=== PATIENT | female | born 1970 | race Caucasian/White ===

== ENCOUNTER 2025-06-10 08:05 | Outpatient (OUT) | payer BC, SELFPAY ==
--- OUTSIDE RECORDS SUMMARY | 2025-05-27 19:22 | XMS_ITS | Continuity of Care Document ---
Author Organization [facility] Address [address] [place] [address] Phone Care Team Providers Care Window Shade Estimator Name Role Phone Carmen Stephane BAH Primary Care Provider [phone] Marquez Haney PA-C Attending Provider Care Teams Patient Care Team Team Status: Active Member Role/Relationship Status Dates Stephane Morales DO Primary Care Provider Active Visit Care Team Team Status: Inactive Member Role/Relationship Status Dates Stephane Morales DO Primary Care Provider Active Start: May 27, 2025 End: May 27, 2025TAD Jesus-CAttenmerced ProviderActiveStart: May 27, 2025 End: May 27, 2025 Allergies, Adverse Reactions, Alerts Allergen Type Severity Reaction Last Updated Verified Status venom-honey bee Allergy Unknown Anaphylaxis October 23, 2023 6:3 1am Yes Active Social History Smoking Status Status Start Date End Date Date of Observa tion Never smoked tobacco (finding) October 23, 2023 7:20am Observation Status Observation Response Date of Response Legal Sex Female (finding) [facility] Family History Relationship Condition Age at Onset Recorded Date/T maikel mother Cerebrovascular accident (CVA) Unknown fatherDiabetes mellitusUnknownmotherDiabetes mellitusUnknownpaternal grandfather Heart diseaseUnknown Problems Active Problems Problem Diagnosis/Recorded Date Onset Date Stat COVID-19 May 06, 2021 6:04pm Unknown Ac tive Fever May 06, 2021 6:04pm Unknown Ac tive Medications Medication Status Dose Units Route Directions Qty Days Refills S tart Date Stop Date End Date Reason(s) Instructions Adherence Zinc Tablet,Chewable Discontinued TABPOOct2020 11:00pmApril 2023 6:47amVitamin X86-Kdvyq Acid 0.5-1 mg TabletDiscontinuedTABPOOctober 2020 11:00pmApril 2023 6:48amAscorbic Acid (Vitamin C) (Vitamin C) 500 mg DiarinXrxlrd570MZHMPatdf May 09, 2021 11:00pmUnknownAcetaminophen (Tylenol) 325 mg Capsule Oyrnbrwcelmx258RAMUDHCDX 4-6 HOURS as needed for FEVEROct2020 11:00pm October 23, 2023 6:46amIbuprofen 200 mg PlvjdoKmelzf289QJCRA3O as needed for PainOct2020 11:00pmUnknownDexamethasone (Decadron) 6 mg tablet Dftvlxuinyge6IOYUHbbdg29Ecaffjnz 2020 11:00pmApril 2023 6:47am Famotidine (Pepcid) 20 mg jkzxqfCmfofswrbuzu44EZQQIrnrl695Xyewpgwz 4th, 2021 11:00pmApril 2023 6:47amTo prevent gastritis or stomach ulcers from steroidRivaroxaban (Xarelto) 10 mg crimerQwlchvilfcxb48YNGEJdpfu322Irpuebyw 4th, 2021 11:00pmApril 2023 6:47amTo prevent clot formations from COVID-19 infection Relevant Diagnostic Tests and/or Laboratory Data Laboratory Results Test Collection Date/Time Result Date/Time Result Interpretation Reference Range Result Comment Performing Site Corrected White Blood Count May 27, 2025 7:00am May 27, 2025 2:23pm 6.9 10*3/uL 3[facility] [id number] [address] [place] [address] 00512Hkzazgzeokx WBC CountMay 27, 2025 7:00amNovember 2024 2:23pm6.9 10*3/uL3.8-11.6[facility] [id number] [address] [facility] [address]Xtm Blood CountNovember 2024 7:00amNovember 2024 2:23pm4.81 10*6/uL3.60-5.00[facility] [id number] [address] [facility] 42970VokrxzdkzjDrheeyjf 2024 7:00amNovember 2024 2:23pm 14.0 g/dL11.8-15.4[facility] [id number] [address] [place] [address] 89615BgltkvzlzaZbekxgxr 2024 7:00amNovember 2024 2:23pm 41.6 %34.0-46.4[facility] [id number] [address] [facility] 95784Mdqb Corpuscular VolumeNovember 2024 7:00amNovember 2024 2:23pm86.6 kV56-091MqyaauoayHolzer Health System Ctr [id number] [address] [place] [address] 43474Ayrr Corpuscular HemoglobinNovember 2024 7:00amNovember 2024 2:23pm29.1 pg24.7-34.3[facility] [id number] [address] [facility] 96954Yrhb Corpuscular Hemoglobin ConcentNovember 2024 7:00am May 27, 2025 2:23pm33.6 g/dL32.0-35.0[facility] [id number] [address] [facility] 48643Vlk Cell Distribution WidthNovember 2024 7:00amNovemb2024 2:23pm13.3 %11.9-15.3[facility] [id number] [address] [facility] 24222Gkusswfa CountNovember 2024 7:00amNovember 2024 2:27ra811 10*3/pP707-317LsswlmphiHolzer Health System [facility] [id number] [address] [facility] 35081Xxmg Platelet VolumeNovember 2024 7:00amNove2024 2:23pm7.6 fL6.3-10.7[facility] [id number] [address] [facility] 74452Mnzpvwzyzky (%) (Auto)May 27, 2025 7:00amNovemb2024 2:23pm54.8 %.[facility] [id number] [address] [facility] 36706Vewcbdodjrq (%) (Auto)May 27, 2025 7:00amNovemb2024 2:23pm37.2 %.[facility] [id number] [address] [facility] 41283Vcxwcftfn (%) (Auto)May 27, 2025 7:00amNovemb2024 2:23pm5.0 %.[facility] [id number] [address] [facility] 48400Gyfpnagniub (%) (Auto)May 27, 2025 7:00amNovemb2024 2:23pm2.1 %.[facility] [id number] [address] [facility] 65090Lalwizdhz (%) (Auto)May 27, 2025 7:00ove2024 2:23pm0.9 %.[facility] [id number] [address] [facility] 65242Dqcsodwvy RBC Relative Count (auto)May 27, 2025 7:00am May 27, 2025 2:23pm0.1 /100{WBC}0-0.5[facility] [id number] [address] [facility] 21370Mgbjdsclhcu # (Auto)May 27, 2025 7:00amNovemb2024 2:23pm3.8 10*3/uL1.8-7.7[facility] [id number] [address] [facility] 52796Mtjiycmulcn # (Auto)May 27, 2025 7:00ovemb2024 2:23pm2.6 10*3/uL1.00-4.8[facility] [id number] [address] [facility] 34383Dcfcxrgcz # (Auto)May 27, 2025 7:00amNovemb2024 2:23pm0.3 10*3/uL0.0-0.8[facility] [id number] [address] [facility] 30042Yyvwjpxetma # (Auto)May 27, 2025 7:00amNovember 2024 2:23pm0.1 10*3/uL0.0-0.45[facility] [id number] [address] [facility] 45506Vcvrcoxiq # (Auto)May 27, 2025 7:00amNovemb2024 2:23pm0.1 10*3/uL0.0-0.2[facility] [id number] [address] [facility] 79483S-Oremj Quantitative (PE/DVT)May 27, 2025 7:00amNove2024 5:05pm< 200 ng/mL0-243The reference range for D-dimer is <243 ng/mL D-dimer units.D-dimer results must be used in conjunction with a clinicalpretest probability (PTP) assessment model for deep veinthrombosis (DVT) and pulmonary embolism (PE). Results <230ng/mL d-dimer units can be used as a negative predictor inpatients with low or moderate probability for DVT/PE.Results above the exclusion threshold of 230 ng/ml D-dimerunits for DVT/PE may indicate the need for furtherdiagnostic testing.D-Dimer can be increased in hospitalized patients due toco-morbid conditions.A hematocrit value greater than 55% may lead to inaccurate results in coagulation testing. Patients having hematocrit values >55% require a special collection tube for coagulation studies. Please contact the laboratory at [phone] for redraw instructions.[facility] [id number] [address] [facility] 46985Jygtuqg LevelNov2024 7:00amNovemb2024 2:34cf535 mg/dLAbove high qrhdfu12-353APQ recommended reference rangeRandom Glucose Reference Range is dependent on time and content of last meal. Glucose of more than 200 mg/dL in a nonstressed, ambulatory subject supports the diagnosisof Diabetes Mellitus.[facility] [id number] [address] [facility] 42034Dhnti Urea NitrogenMay 27, 2025 7:00amNove2024 2:45pm15 mg/dL7-25[facility] [id number] [address] [facility] 72958NslwgzcaiuVpfsmehm 18th, 2025 7:00amNove2024 2:45pm 0.93 mg/dL0.60-1.20[facility] [id number] [address] [facility] 48462Kmfufekbt GFR (CKD-EPI)May 27, 2025 7:00amNove2024 2:45pm> 60.0 mL/MinHolzer Health System Ctr [id number] [address] [facility] 41180Krmsql LevelMay 27, 2025 7:00amNove2024 2:04hg988 mmol/I200-840GalucibdoHolzer Health System Ctr [id number] [address] [place] [address]29[address]Potassium LevelMay 27, 2025 7:00amNove2024 2:45pm4.4 mmol/L3.5-5.1[facility] [id number] [address] [facility] 49682Vrginkig LevelMay 27, 2025 7:00amNove2024 2:21wo768 mmol/G21-435XvqkyerqkHolzer Health System Ctr [id number] [address] 5992970Carbon Dioxide LevelMay 27, 2025 7:00amNove2024 2:45pm30.7 mmol/L21.0-31.0[facility] [id number] [address] [facility] 62968Gbbyw GapMay 27, 2025 7:00amNove2024 2:45pm 9.7 mEq/L6.0-15.0[facility] [id number] [address] [facility] 14030Anivjop LevelNovember 2024 7:00amNovember 2024 2:45pm9.2 mg/dL8.6-10.3[facility] [id number] [address] [facility] 769[address]Ggerv ProteinNovember 2024 7:00amNovember 2024 2:45pm6.7 g/dL6.4-8.9[facility] [id number] [address] [facility] 88624RwqsoceStlwkuyb 2024 7:00amNovember 2024 2:45pm4.2 g/dL3.5-5.7[facility] [id number] [address] [facility] 74472TnfovcceWyslgvjv 2024 7:00amNovember 2024 2:45pm2.5 g/dLHolzer Health System Ctr [id number] [address] [facility] 64753Ggjerda/Globulin RatioNovemb2024 7:00amNovember 2024 2:45pm1.7[facility] [id number] [address] [facility] 71960Drqva BilirubinNovember 2024 7:00amNovemb2024 2:45pm0.4 mg/dL0.3-1.0[facility] [id number] [address] [facility] 38275Unygvetvv Amino Transf (AST/SGOT)May 27, 2025 7:00am May 27, 2025 2:45pm16 U/U16-15WtxojozgfHolzer Health System Ctr [id number] [address] [facility] 78454Ohmplmu Aminotransferase (ALT/SGPT)May 27, 2025 7:00am May 27, 2025 2:45pm14 U/L7-52[facility] [id number] [address] [facility] 67121Xyzxmjyz PhosphataseNovember 2024 7:00amNovember 2024 2:45pm59 U/Z74-359MdgjikiedHolzer Health System Ctr [id number] [address] [facility] 16674Niyt LevelNov2024 7:00amNovemb2024 2:45pm 57 ug/aS36-872BtmwwjoxdHolzer Health System Ctr [id number] [address] [facility] 90484Hdmuh Iron Binding CapacityMay 27, 2025 7:00amNove2024 2:28zd913 ug/sM781-839BgtabtvjrHolzer Health System Ctr [id number] [address] [facility] 26881Fvps SaturationMay 27, 2025 7:00amNove2024 2:45pm15.4 %Below low -53SwjoauehhHolzer Health System Ctr [id number] [address] [facility] 79241LnvxvnxmkmzLzfxzdes 18th, 2025 7:00amNove2024 2:45pm 265 mg/uJ186-976DrvkxrkkkHolzer Health System [facility]tr [id number] [address] [facility] 91239NufjicvdXsdecjmr 18th, 2025 7:00amNove2024 3:06pm 57.5 ng/mL11.0-306.8[facility] [id number] [address] [facility] 19610Gjqlgcwutcf LevelNov2024 7:00amNove2024 2:01td148 mg/qC682-413Chrz less than 200 mg/dl low riskChol 201-239 mg/dl borderline riskChol 240 mg/dl and greater high riskHolzer Health System Ctr [id number] [address] [facility] 22416SPF CholesterolMay 27, 2025 7:00amNove2024 2:45pm61 mg/jW09-74ZJC CHOL ATP-III CLASSIFICATION Cardiovascular RiskHDL > or equal to 60 mg/dL LOWHDL < 40 mg/dL HIGHHolzer Health System Ctr [id number] [address] [facility] 35421Wpchkslnzepzn LevelNov2024 7:00amNovemb2024 2:45pm97 mg/dL0-149TRIG ATP III CLASSIFICATIONTRIG less than 150 mg/dL NormalTRIG 150-199 mg/dL Borderline highTRIG 200-500 mg/dL High TRIG greater than 500 mg/dL Very highStandard traceable to the Center for Disease Conrtrol and Prevention (CDC) test method.[facility] [id number] [address] [facility] 51747YGF Cholesterol, CalculatedNov2024 7:00amNovember 2024 2:59vp797 mg/dLAbove high normal0-100LDL ATP III CLASSIFICATIONLDL less than 100 mg/dL OptimalLDL 100-129 mg/dL Near or above zbyygkqCHD061-682 mg/dL Borderline highLDL 160-189 mg/dL HighLDL greater than 189 mg/dL Very high [facility] [id number] [address] [facility] 43931YZPL CholesterolNov2024 7:00amNovemb2024 2:45pm19 mg/dLHolzer Health System [facility]tr [id number] [address] [facility] 93454Pqnowcdifwh/HDL RatioNove2024 7:00amNovember 2024 2:45pm3.2<5.0[facility] [id number] [address] [facility] 25451Pomduid B12 LevelMay 27, 2025 7:002024 3:74ck658 pg/uB794-143EavgsoqisHolzer Health System Ctr [id number] [address] [facility] 1344055-Kwgtxuk Vitamin D TotalMay 27, 2025 7:00amNovemb2024 3:12pm38.7 ng/zH38-194JEWIYKU D STATUS 25(OH)VITAMIN D RANGE (ng/mL) Deficient <20 Insufficient 20 to <21Lheqphuqgy52 to 100Reference: Stephanie COBB,Michael ISABEL, Micheal RAMIREZ, et al. Evaluation,treatment, and prevention of vitamin D deficiency; an Endocrine Society clinical practice guideline. JCEM. 2010; 96(7):1911-30.[facility] [id number] [address] [facility] 57008Nsmrlbku Creatinine Clearance (ChemNov2024 7:00am May 27, 2025 2:45pmN/AFWayne Hospital [facility] [id number] [address] [facility] 32797Firix Microalbumin mg/dlNov2024 7:00amNovember 2024 2:50pm5.6 mg/dLAbove high normal0.0-1.8[facility] [id number] [address] [facility] 33750Swhux Random CreatinineNov2024 7:00amNovemb2024 2:53yt561.00 mg/dLNo reference range establishedHolzer Health System Ctr [id number] [address] [facility] 26802Rrdai Microalbumin/Creatinine RatioNove2024 7:00am May 27, 2025 2:50pm27.2 mg/g0.0-30.030-300 mg/g indicates an increased risk for diabetic nephropathy. Greater than 300 mg/g is consistent with clinical nephropathy. (Am. J. Kidney Disease 1995, 25:107)[facility] [id number] [address] [facility] [address] Advance Directives Advance Directive Response Recorded Date/ Time Advance Directives No May 06, 2021 3:51pm Insurance Providers Guarantor Griselda Davalos Address [address] [facility] [address]Giqebrs Info.Home Phone: Payer Group Member ID Coverage Type Subscriber Relationship to Subscriber Effective Date Expiration Date MMO MMO Id: [id number] L Bailey Id: [id number] [address] [address] Home Phone: [facility] BC/BS Id: [id number] L Bailey Id: [id number] [address] [address] Home Phone: Encounters Encounter Location(s) Arrival/Admit Date Discharge/Departure Date Discharge/Departure Disposition Provider(s) Departed Clinical -Lab [place] May 27, 2025 7:00am May 27, 2025 7:01am Discharged to home care or self care (routine discharge) Griselda Ch PAAlexsandraC Plan of Treatment Future Tests Future scheduled test information is unavailable Pending Tests Test Name Ordered Date Scheduled Date Hemoglobin A1c May 27, 2025 7:00am Estimated Average GlucoseNov2024 7:00am Future Visits Future appointment information is unavailable Future Procedures Procedure Name Ordered Date Scheduled Date A1C with Estimated Average Glu May 27 7:02am May 27, 2025 7:00am Future Medications Future medication information is unavailable Patient Instructions Patient instructions are unavailable
--- OUTSIDE RECORDS SUMMARY | 2025-05-28 14:00 | XMS_ITS | Encounter Summary ---
Author Organization [facility] Address [address] [place] [address] Care Team Providers Care Supplier Manager Name Role Phone JoseStephane enrique David DO Primary Care Provider [phone] Encounter Details DateTypeDepartmentCare Team (Latest Contact Info)Btmseyoopqo41/19/2025 2:00 PM ESTOffice Visit [facility] [place] [facility] [address] [facility] [address] [place] [address] Jose Luis Avilez MD [address] [facility] [address] [place] [address] Well woman exam with routine gynecological exam (Primary Dx); PMB (postmenopausal bleeding) Social History Tobacco UseTypesPacks/DayYears UsedDateSmoking Tobacco: NeverSmokeless Tobacco: NeverAlcohol UseStandard Drinks/WeekCommentsNever0 (1 standard drink = 0.6 oz pure alcohol)caffeine: 1-2 cups per dayHumiliation, Afraid, Rape, and Kick questionnaireAnswerDate RecordedWithin the last year, have you been afraid of your partner or ex-partner?No05/30/2023Within the last year, have you been humiliated or emotionally abused in other ways by your partner or ex-partner?No 05/30/2023Within the last year, have you been kicked, hit, slapped, or otherwise physically hurt by your partner or ex-partner?No05/30/2023Within the last year, have you been raped or forced to have any kind of sexual activity by your part ner or ex-partner?No05/30/2023Social Connection and Isolation PanelAnswerDate RecordedIn a typical week, how many times do you talk on the phone with family, friends, or neighbors?More than three times a week05/30/2023How often do you get together with friends or relatives?More than three times a week05/30/2023How often do you attend christianity or yazidi services?1 to 4 times per year05/30/2023 Do you belong to any clubs or organizations such as christianity groups, unions, fraternal or athletic groups, or school groups?Yes05/30/2023How often do you attend meetings of the clubs or organizations you belong to?More than 4 times per year05/30/2023re you , , , , never , or living with a partner?Rzavfhv3305/30/2023UDIT-CAnswerDate RecordedFrequency of Alcohol ConsumptionNot on file05/30/2023Q2: How many drinks containing alcohol do you have on a typical day when you are drinking?Patient exgmhrtj67/21/2023Q3: How often do you have six or more drinks on one occasion?Patient declined 05/30/2023Overall Financial Resource Strain (CARDIA)AnswerDate RecordedHow hard is it for you to pay for the very basics like food, housing, medical care, and heating?Patient bjxctsui15/21/2023HQ-2AnswerDate RecordedPatient Health Questionnaire-2 Kbmjh66907/26/2024Finhuntsman mental health institute [place] [facility] - Occupational Stress QuestionnaireAnswerDate RecordedDo you feel stress - tense, restless, nervous, or anxious, or unable to sleep at night because yourmind is troubled all the time - these days?Only a rylxgc6705/30/2023Exercise Vital Sign AnswerDate RecordedOn average, how many days per week do you engage in moderate to strenuous exercise (like a brisk walk)?2 days05/30/2023On average, how many minutes do you engage in exercise at this level?20 min05/30/2023Hunger Vital SignAnswerDate RecordedWithin the past 12 months, you worried that your food would run out before you got the money to buymore.Patient tjlolxmi69/21/2023 Within the past 12 months, the food you bought just didn't last and you didn't have money to get more.Patient /21/2023RAPARE - TransportationAnswer Date RecordedIn the past 12 months, has lack of transportation kept you from medical appointments or from getting medications?Patient ettlynjp38/21/2023In the past 12 months, has lack of transportation kept you from meetings, work, or from getting things needed for daily living?Patient pwgishwn88/21/2023Housing Stability Vital SignAnswerDate RecordedIn the last 12 months, was there a time when you were not able to pay the mortgage or rent on time?Patient refused 05/30/2023Number of Places Lived in the Last YearNot on file05/30/2023In the last 12 months, was there a time when you did not have a steady place to sleep or [facility] (including now)?Patient wawfmnx6505/30/2023CommentsNo Sex and Gender InformationValueDate RecordedSex Assigned at BirthNot on file Legal JkeJowluz63/15/2023 7:20 PM EDTGender IdentityNot on fileSexual OrientationNot on filedocumented as of this encounter Last Filed Vital Signs Vital SignReadingTime TakenCommentsBlood Lqleknjq935/7805/28/2025 2:04 PM EST Pulse--Temperature--Respiratory Rate--Oxygen Saturation--Inhaled Oxygen Concentration--Cfgjid15.4 kg (164 lb)05/28/2025 2:04 PM ESTHeight--Body Mass Index27.29107/26/2024 3:07 PM ESTdocumented in this encounter Progress Notes * Jose Luis Avilez MD - 05/28/2025 2:00 PM EST Images from the original note were not included. Jose Luis Avilez MD Obstetrics and Gynecology Patient: Krysta Villalobos Martina, : 1970 (55 y.o.) DOS 05/28/25 Exam Date: 05/28/2025 HPI: Yearly exam Se has stopped having menses, but did have some spotting this past summer Visit Vitals BP 114/78 Wt 164 lb LMP 02/16/2025 BMI 27.29 kg/m?? OB Status Having periods Smoking Status Never BSA 1.85 m?? OB History Para Term AB Living 5 4 4 0 0 4 SAB IAB Ectopic Multiple Live Births 0 0 0 0 4 # Outcome Date GA Lbr Edgardo/2nd Weight Sex Type Anes PTL Lv 5 4 Term 3 Term 2 Term 1 Term Obstetric Comments Pap: 09/01-Neg HORACE: HPV Neg Mammo: 06/12/24-Neg ([facility]) No control; every month, varies in blood loss, LMP: 02/16/25 Medication and Allergies Medication Documentation Review Audit Reviewed by Lillian Mooney MA (Area Development Manager) on 05/28/25 at 1405 Medication Order Taking? Sig Documenting Provider Last Dose Status albuterol HFA 90 mcg/act inhaler [id number] inhale 2 puffs by mouth and INTO THE LUNGS every 6 hours if needed 25 for 25 Stephane Morales, DO Active Tbbvhaa-Xakjeusgchy-Vqinoslrgo (Breztri Aerosphere) 160-9-4.8 MCG/ACT aerosol [id number] 1 puff every12 (twelve) hours. Historical ProviderMD Active cinnamon 500 MG capsule [id number] as directed Orally Historical ProviderMD Active Cyanocobalamin (Vitamin B12) 1000 MCG tablet controlled-release 65632992 1 (one) time each day at the same time. Historical ProviderMD Active cyclobenzaprine (Flexeril) 10 MG tablet [id number] Take 1 tablet (10 mg) by mouth 3 (three) times a day as needed for muscle spasms (q8hrs) TAD Jesus Active [facility] [employer] PO [id number] Take by mouth. Beet root Historical ProviderMD Active Multiple Vitamins-Minerals (Womens Daily Formula) tablet 26267868 Orally Historical ProviderMD Active Turmeric 500 MG capsule [id number] Take by mouth. Stephane Morales, DO Active Zinc-Vitamin C 23-100 MG lozenge 87329964 1 lozenge 1 (one) time each day at the same time. Historical Provider, Active Allergies Allergen Reactions Bee Venom Unknown Past Medical History: Diagnosis Date Allergies Anemia COVID Hx of varicose veins IFG (impaired fasting glucose) Impaired fasting glucose 03/30/2020 Iron deficiency anemia 01/16/2023 Miscarriage (HHS-HCC) (HHS-HCC) x5 Urinary retention Varicella zoster Vitamin D deficiency 01/16/2023 Past Surgical History: Procedure Laterality Date SECTION, LOW TRANSVERSE COLONOSCOPY 10/23/2023 DILATION AND CURETTAGE OF UTERUS 2003 VAGINAL AFTER SECTION 1997 VAGINAL AFTER SECTION x3 Physical Exam: Objective Physical Exam Constitutional: Appearance: Normal appearance. Genitourinary: Vulva normal. No vaginal discharge or bleeding. Right Adnexa: not palpable. Left Adnexa: not palpable. Cervical nabothian cyst present. No cervical lesion. Uterus is not enlarged or tender. Breasts: Right: Normal. Left: Normal. Pulmonary: Effort: Pulmonary effort is normal. Abdominal: Palpations: Abdomen is soft. Neurological: Mental Status: She is alert. Assessment/Plan ICD-10-CM 1. Well woman exam with routine gynecological exam Z01.419 2. PMB (postmenopausal bleeding) N95.0 Repeat sono to re-eval EMT No orders of the defined types were placed in this encounter. documented in this encounter Plan of Treatment DateTypeDepartmentCare Team (Latest Contact Info)Ffmzbjedbtm95/10/2025 8:30 AM ESTAncillary Procedure [facility] [place] [facility] [address] [place] [phone] 06/18/2025 5:30 PM ESTAncillary Procedure [facility] [place] [facility] [address] [place] [phone] 06/08/2026 10:00 AM ESTOffice Visit [facility] [place] [facility] [address] [place] [address] Jose Luis Avilez MD [address] [place] [address] documented as of this encounter Visit Diagnoses Diagnosis Well woman exam with routine gynecological exam- Primary Routine gynecological examination PMB (postmenopausal bleeding) Postmenopausal bleeding documented in this encounter Care Teams Team MemberRelationshipSpecialtyStart DateEnd Date Stephane Morales DO [address] [place] [address] PCP - GeneralFamily Medicine08/07/23documented as of this encounter
--- OUTSIDE RECORDS SUMMARY | 2025-06-02 12:15 | XMS_ITS | Encounter Summary ---
Author Organization [facility] Address [address] [place] [address] Care Team Providers Care Certified Surgical First Assistant Name Role Phone Sherlyn Morales DO Primary Care Provider +1- [phone] Reason for Referral * Imaging (Routine) - AuthorizedSpecialtyDiagnoses / ProceduresReferred By ContactReferred To ContactRadiology Diagnoses Chest pain, unspecified type Procedures Stress test with myocardial perfusion Sherlyn Morales DO [address] [place] [address] Phone: tel: fax: [facility] [address] [place] [address] fax: Referral IDStatusReasonStart DateExpiration DateVisits RequestedVisits [id number]/24/20255/23/202633 Reason for Visit * ReasonCommentsAnnual Exam Encounter Details DateTypeDepartmentCare Team (Latest Contact Info)Eclukgiakac99/24/2025 12:15 PM ESTOffice Visit [facility] [address] [place] [id number] Petznick, Sherlyn C, DO [address] [place] [address] Chest pain, unspecified type (Primary Dx); Vitamin B12 deficiency; Routine general medical examination at a health care facility; Chest tightness; IFG (impaired fasting glucose) Social History Tobacco UseTypesPacks/DayYears UsedDateSmoking Tobacco: NeverSmokeless [...] times a week05/30/2023How often do you attend anglican or congregational services?1 to 4 times per year05/30/2023 Do you belong to any clubs or organizations such as anglican groups, unions, fraternal or athletic groups, or school groups?Yes05/30/2023How often do you attend meetings of the clubs or organizations you belong to?More than 4 times per year05/30/2023re you , , , , never , or living with a partner?Ccufwvk3305/30/2023UDIT-CAnswerDate RecordedFrequency of Alcohol ConsumptionNot on file05/30/2023Q2: How many drinks containing alcohol do you have on a typical day when you are drinking?Patient rncvlpik31/21/2023Q3: How often do you have six or more drinks on one occasion?Patient declined 05/30/2023Overall Financial Resource Strain (CARDIA)AnswerDate RecordedHow hard is it for you to pay for the very basics like food, housing, medical care, and heating?Patient ggcsmmox66/21/2023HQ-2AnswerDate RecordedPatient Health Questionnaire-2 Rsmcr71708/02/2024Fin[facility]ational [facility] - Occupational Stress QuestionnaireAnswerDate RecordedDo you feel stress - tense, restless, nervous, or anxious, or unable to sleep at night because yourmind is troubled all the time - these days?Only a kfwgrs7905/30/2023Exercise Vital Sign AnswerDate RecordedOn average, how many days per week do you engage in moderate to strenuous exercise (like a brisk walk)?2 days05/30/2023On average, how many minutes do you engage in exercise at this level?20 min05/30/2023Hunger Vital SignAnswerDate RecordedWithin the past 12 months, you worried that your food would run out before you got the money to buymore.Patient lcyzhdwz06/21/2023 Within the past 12 months, the food you bought just didn't last and you didn't have money to get more.Patient vqjeiqpf70/21/2023RAPARE - TransportationAnswer Date RecordedIn the past 12 months, has lack of transportation kept you from medical appointments or from getting medications?Patient okvorkwt28/21/2023In the past 12 months, has lack of transportation kept you from meetings, work, or from getting things needed for daily living?Patient zfitbirc71/21/2023Housing Stability Vital SignAnswerDate RecordedIn the last 12 months, was there a time when you were not able to pay the mortgage or rent on time?Patient refused 05/30/2023Number of Places Lived in the Last YearNot on file05/30/2023In the last 12 months, was there a time when you did not have a steady place to sleep or slept in columbuselter (including now)?Patient tgmmvyx8305/30/2023CommentsNo Sex and Gender InformationValueDate RecordedSex Assigned at BirthNot on file Legal OlhVbaztl52/15/2023 7:20 PM EDTGender IdentityNot on fileSexual OrientationNot on filedocumented as of this encounter Last Filed Vital Signs Vital SignReadingTime TakenCommentsBlood Epdsyrri893/7206/02/2025 12:26 PM EST Ctiww433506/02/2025 12:26 PM OXNJthnlnxabay29.1 ??C (97 ??F)06/02/2025 12:26 PM ESTRespiratory Rate--Oxygen Gnsublxtmf81%06/02/2025 12:26 PM ESTInhaled Oxygen Concentration--Wxwafv05.1 kg (170 lb)06/02/2025 12:26 PM HBVPqagyo922.1 cm (5' 5 )06/02/2025 12:26 PM ESTBody Mass Index28.29108/02/2024 12:26 PM ESTdocumented in this encounter Functional Status * Over the past 2 weeks, how often have you been bothered by any of the following problems?QuestionAnswerDate of AssessmentAuthorLittle interest or pleasure in doing thingsNot at all06/02/2025 12:25 PM Alise Merchant MA Feeling down, depressed, or hopelessNot at all06/02/2025 12:25 PM Alise Merchant MAPatient Health Questionnaire-2 Wxjuj69208/02/2024 12:25 PM Alise Merchant MA documented as of this encounter Progress Notes * Sherlyn Morales, DO - 06/02/2025 12:15 PM EST Images from the original note were not included. Krysta Mack is a 55 y.o. female presents with chief complaint of Chief Complaint Patient presents with Annual Exam ?Quick Links Last Note in Specialty Snapshot Edit RFV/CC Edit Screenings Current Meds ?Quick Links Full Problem List ?Quick Links Add Vitals Timeline (Adult) Labs Imaging Results Review Trend Vitals ?? Avoid pulling in long tables of results. Comment on relevant results to support your medical decision making. Diagnoses and all orders for this visit: Chest pain, unspecified type - Stress test with myocardial perfusion Vitamin B12 deficiency - cyanocobalamin (Vitamin B-12) 1000 MCG/ML injection; Inject 1 mL (1,000 mcg) into the shoulder, thigh, or buttocks 1 (one) time per week Routine general medical examination at a health care facility Chest tightness IFG (impaired fasting glucose) At [facility] maintanence appointment I reviewed the patients past medical history along with any laboratory and diagnostic testing preformed prior to the visit. During the visit, health care maintanence was reviewed and recommendations made specifically for the patient based on their risk factors. Current colon cancer screening: up-to-date with colonoscopy. Breast cancer screening: up-to-date with screening. Blood work: most recent blood work reviewed . Finally the patient was instructed to call the office if any health issues arise until the next well check/appointment. At the conclusion of the visit all questions were answered which were brought forth. Assessment & Plan 1. Chest pain: The patient experiences tightness in the chest, primarily on the left side, which occurs sporadically and can last all day. Previous coronary calcium scoring and EKG results were normal. A stress test will be ordered to rule out any cardiac issues. If the stress test results are inconclusive, a Holter monitor may be considered. 2. Vitamin B12 deficiency: The patient reports fatigue and occasional mental fog, which may be related to her low vitamin B12 level of 188 pg/mL. Vitamin B12 injections will be prescribed, to be administered weekly for the first month and then monthly thereafter. The patient is advised to discontinue oral vitamin B12 supplements. 3. Hip pain: The patient experiences pain and stiffness in both hips, especially after sitting for prolonged periods. The patient is advised to maintain an active lifestyle and incorporate flexibility exercises. Activities involving bending the hips at 90 degrees should be avoided. Inflammatory markers will be checked to further assess her condition. Follow-up: The patient will follow up in 1 month. SHERLYN MORALES D.O. This note was entered using obiwon copilot. Grammatical and dictation errors maybe present in translation *I have reviewed and reconciled the history and medication list with the patient today* HPI History of Present Illness Pt is here for annual exam and to discuss labs. Pt is due for mammogram in June. Last Colonoscopy 10/2023. Pt c/o intermittent chest tightness and heart palpitations x 6 months. Nothing makes chest tightness worse or better. Pt denies sharp pain. Marquez Haney did order Holter monitor on 05/26/25 but pt has not heard from [facility] to set it up yet. CT cardiac scoring was done in February and it came back normal. The patient is a 58-year-old female who presents for an annual wellness visit. She has a history ofiron deficiency anemia and potassium glucose abnormalities. She reports experiencing palpitations, which were first discussed in December 2024. These episodes havebeen occurring for approximately 3 months prior to that discussion. She is unable to identify a specific trigger for these palpitations, noting that they can occur during various activities such as walking, sitting, or transitioning from a seated to a lying position. Accompanying these palpitationsis a sensation of chest tightness, which persists for some time before subsiding. A calcium test was previously conducted, yielding normal results. However, she experienced an entire day of chest tightness on 05/26/2025, prompting her to seek medical attention. The physician suggested the possibility of muscle tightness and prescribed a muscle relaxant, which she has not yet started. She reports no symptoms of heartburn or acid reflux. The frequency of her chest tightness varies, with some daysbeing different than others. She also notes that physical exertion, such as climbing stairs, can ind uce the tightness, which is consistently localized to the left side. Despite these symptoms, her EKG results have been normal. She expresses concern about potential esophageal issues, given her lack of gastrointestinal symptoms. She has been advised to wear a Holter monitor but has not yet receiveda call from the hospital to schedule this. She is currently taking vitamin B12 supplements in gummy form due to difficulty swallowing pills. She reports feeling fatigued and occasionally experiences brain fog. Her vitamin B12 level was found to be low at 188. She reports difficulty initiating movement after sitting for short periods, particularly in her hips. She also experiences redness and swelling in her fingers during physical activity. She spends themajority of her day sitting and finds relief from her symptoms by soaking in hot water at night. FAMILY HISTORY Her younger brother had five stents put in at the age of 45 and is overweight. Depression: Not at risk (06/02/2025) PHQ-2 PHQ-2 Score: 0 Discontinued Medications CYCLOBENZAPRINE (FLEXERIL) 10 MG TABLET Take 1 tablet (10 mg) by mouth 3 (three) times a day as needed for muscle spasms (q8hrs) SUBJECTIVE: Current Medications/Allergies: ROS Current Medications[1] Allergies[2] Review of Systems Constitutional: Negative for fatigue. HENT: Negative for rhinorrhea. Respiratory: Negative for cough and shortness of breath. Cardiovascular: Positive for chest pain and palpitations. Gastrointestinal: Negative for abdominal distention. Skin: Negative for rash. Neurological: Negative for dizziness. All other systems reviewed and are negative. Past Medical/Sx History: Social/FHx Medical History[3] Surgical History[4] Social History[5] Family History[6] Health Maintenance Due Topic Date Due Pneumococcal Vaccine: Pediatrics (0 to 5 Years) and At-Risk Patients (6 to 64 Years) (1 of 2 - PCV)Never done Influenza Vaccine (1) 03/10/2025 COVID-19 Vaccine ( - season) Never done Mammogram 06/12/2025 OBJECTIVE: 06/02/2025 12:26 PM 05/28/2025 2:04 PM 05/26/2025 3:07 PM 12/11/2024 3:23 PM 05/20/2024 1:34 PM 05/20/2024 12:44 PM 09/07/2023 1:43 PM Vitals BMI 28.29 kg/m2 27.29 kg/m2 28.29 kg/m2 31.95 kg/m2 29.62 kg/m2 30.45 kg/m2 32.28 kg/m2 BSA (m2) 1.88 m2 1.85 m2 1.88 m2 2 m2 1.92 m2 1.95 m2 2.01 m2 Systolic 110 114 120 124 120 124 120 Diastolic 72 78 70 74 72 74 70 Heart Rate 62 81 81 76 SpO2 98 % 99 % 98 % 95 % Temp 97 ??F 96 ??F 98.5 ??F 98.4 ??F Height (in) 5' 5 5' 5 5' 5 5' 5 5' 5 Weight (lb) 170 164 170 192 178 183 194 Visit Report Report Report Report Report Report Report Report Report Physical Exam General Appearance: Appears well-tanned and in no acute distress. Head: Atraumatic normal cephalic. No masses or swelling. Eyes: EOMI, sclera white, conjunctiva clear, no injection. Pupils relatively equal size. Ears: External ears normal. No signs or trauma or infection. Nose: Nasal mucosal pink and moist, No discharge or congestion. Normal appearance of the soft tissue of the nose. Throat: Lips moist, Teeth and gums in good condition. Neck: Supple, no obvious range of motion deficits, no swelling or pain. Respiratory: Clear to auscultation bilaterally, no wheezes, rhonchi or crackles. Good breaths sounds throughout lung clif[place]. Cardiovascular: Heart rate is 81. rrr Musculoskeletal/Extremities: No gross deformities or malalignment, normal ambulation, no swelling, no deformities. Skin: Warm and dry, no rashes. Neurological: Cranial nerves II-VII grossly intact, no gross neurologic abnormalities or focal defects. Psychiatric: Cooperative, pleasant, no signs of major mood disorder. [1] Current Outpatient Medications Medication Sig Dispense Refill albuterol HFA 90 mcg/act inhaler inhale 2 puffs by mouth and INTO THE LUNGS every 6 hours if rwiyee86 for 25 18 g 5 Wxxampw-Bovxynxxqjg-Jtlpabwryd (Breztri Aerosphere) 160-9-4.8 MCG/ACT aerosol 1 puff every 12 (twelve) hours. cinnamon 500 MG capsule as directed Orally Cyanocobalamin (Vitamin B12) 1000 MCG tablet controlled-release 1 (one) time each day at the same time. cyclobenzaprine (Flexeril) 10 MG tablet Take 10 mg by mouth 3 (three) times a day as needed for muscle spasms MISC NATURAL PRODUCTS PO Take by mouth. Beet root Multiple Vitamins-Minerals (Womens Daily Formula) tablet Orally Turmeric 500 MG capsule Take by mouth. Zinc-Vitamin C 23-100 MG lozenge 1 lozenge 1 (one) time each day at the same time. cyanocobalamin (Vitamin B-12) 1000 MCG/ML injection Inject 1 mL (1,000 mcg) into the shoulder, thigh, or buttocks 1 (one) time per week 4 mL 0 No current facility-administered medications for this visit. [2] Allergies Allergen Reactions Bee Venom Unknown [3] Past Medical History: Diagnosis Date Allergies Anemia COVID Hx of varicose veins IFG (impaired fasting glucose) Impaired fasting glucose 03/30/2020 Iron deficiency anemia 01/16/2023 Miscarriage ([facility]) ([facility]) x5 Urinary retention Varicella zoster Vitamin D deficiency 01/16/2023 [4] Past Surgical History: Procedure Laterality Date SECTION, LOW TRANSVERSE COLONOSCOPY 10/23/2023 DILATION AND CURETTAGE OF UTERUS 2003 VAGINAL AFTER SECTION 1997 VAGINAL AFTER SECTION x3 [5] Social History Tobacco Use Smoking status: Never Smokeless tobacco: Never Vaping Use Vaping status: Never Used Substance Use Topics Alcohol use: Never Comment: caffeine: 1-2 cups per day Drug use: Never [6] Family History Problem Relation Name Age of Onset Kidney disease Mother Maternal Hyperlipidemia Mother Maternal Hypertension Mother Maternal Hypertension Father Paternal Hyperlipidemia Father Paternal Osteoarthritis Father Paternal documented in this encounter Plan of Treatment DateTypeDepartmentCare Team (Latest Contact Info)Xdzahatnmtu84/10/2025 8:30 AM ESTAncillary Procedure [facility] [place] [facility] [address] [place] [address] 06/18/2025 5:30 PM ESTAncillary Procedure [facility] [place] [facility] [address] [place] [phone] 06/08/2026 10:00 AM ESTOffice Visit [facility] [address] [place] [phone] Jose Luis Avilez MD [address] [place] [address] NameTypePriorityAssociated DiagnosesOrder ScheduleStress test with myocardial perfusionCardiac Nuclear MedicineRoutine Chest pain, unspecified type Ordered: 06/02/2025documented as of this encounter Visit Diagnoses Diagnosis Chest pain, unspecified type- Primary Vitamin B12 deficiency Other B-complex deficiencies Routine general medical examination at a health care facility Chest tightness Other chest pain IFG (impaired fasting glucose) documented in this encounter Care Teams Team MemberRelationshipSpecialtyStart DateEnd Date Sherlyn Morales DO [address] [place] [address] PCP - GeneralFamily Medicine08/07/23documented as of this encounter
--- NOTE | 2025-06-10 07:45 | NM_ITS ---
Patient Name: LORNA VALDEZ MR#: [id number] : 1970 Exam Date: 06/10/2025 Ordering Doctor: DR. SHERLYN TODD RADIOLOGY REPORT PROCEDURE: NM MICHELLE PERF SPECT REST STR COMPARISON: None. INDICATIONS: CHEST PAIN TECHNIQUE: Exam Description: Rest/Stress two day protocol gated SPECT Rest Imagin.0 mCi Tc-99m Cardiolite IV on 06/10/2025 Stress Imaging 30.1 mCi Tc-99m Cardiolite IV on 06/10/2025 Exercise Protocol: Ke[place] Heart Rate (bpm): Rest: 70 Max: 169 PMHR: 103 Blood Pressure: Rest: 124/78 Max: 180/84 Exercise Time: Minutes: 09 Seconds: 07 Stage Reached: Stage: 4 Mets 10.1 Symptoms: Rest and peak stress ECG findings were pending, and the exercise portion of the study was pending per attending physician RUST. For more details, please see separate cardiac stress test report. FINDINGS: QUALITY OF STUDY: PERFUSION DEFECT: Good LOCATION: N/A SIZE: N/A SEVERITY: N/A TYPE: N/A WALL MOTION: Normal wall motion LV SIZE: 45 mL. TID / TCD: 0.8 LVEF: Calculated EF 79% SUMMARY: Myocardial perfusion imaging study is normal CONCLUSION: 1. Myocardial perfusion is normal with soft tissue attenuation 2. Global left ventricular systolic function is hyperdynamic; ejection fraction is 79% 3. No significant transient ischemic dilatation Dictated by: David Wood M.D. on 06/10/2025 at 16:31 Approved by: David Wood M.D. on 06/10/2025 at 16:43
--- OUTSIDE RECORDS SUMMARY | 2025-06-10 08:08 | XMS_ITS | Encounter Summary ---
Author Organization [facility] Address [address] [place] [address] Care Team Providers Care Cutting Machine Fixer Name Role Phone Willie Moralesew David DO Primary Care Provider +1- [phone] Encounter Details DateTypeDepartmentCare Team (Latest Contact Info)Gwjskjcnqfm04/18/2025External Result Encounter [facility] External Department Unsolicited Marquez Haney, PA [address] [facility] [address] [place] [address] Social History Tobacco UseTypesPacks/DayYears UsedDateSmoking Tobacco: NeverSmokeless [...] times a week05/30/2023How often do you attend orthodox or mosque services?1 to 4 times per year05/30/2023 Do you belong to any clubs or organizations such as orthodox groups, unions, fraJobydu or athletic groups, or school groups?Yes05/30/2023How often do you attend meetings of the clubs or organizations you belong to?More than 4 times per year05/30/2023re you , , , , never , or living with a partner?Bdgkgeq5705/30/2023UDIT-CAnswerDate RecordedFrequency of Alcohol ConsumptionNot on file05/30/2023Q2: How many drinks containing alcohol do you have on a typical day when you are drinking?Patient uoekwyej87/21/2023Q3: How often do you have six or more drinks on one occasion?Patient declined 05/30/2023Overall Financial Resource Strain (CARDIA)AnswerDate RecordedHow hard is it for you to pay for the very basics like food, housing, medical care, and heating?Patient otnlhdgp42/21/2023HQ-2AnswerDate RecordedPatient Health Questionnaire-2 Nrheh22307/26/2024Fin[facility] Occupational Health - Occupational Stress QuestionnaireAnswerDate RecordedDo you feel stress - tense, restless, nervous, or anxious, or unable to sleep at night because yourmind is troubled all the time - these days?Only a lfwvfl7005/30/2023Exercise Vital Sign AnswerDate RecordedOn average, how many days per week do you engage in moderate to strenuous exercise (like a brisk walk)?2 days05/30/2023On average, how many minutes do you engage in exercise at this level?20 min05/30/2023Hunger Vital SignAnswerDate RecordedWithin the past 12 months, you worried that your food would run out before you got the money to buymore.Patient frdtfabx62/21/2023 Within the past 12 months, the food you bought just didn't last and you didn't have money to get more.Patient /21/2023RAPARE - TransportationAnswer Date RecordedIn the past 12 months, has lack of transportation kept you from medical appointments or from getting medications?Patient /21/2023In the past 12 months, has lack of transportation kept you from meetings, work, or from getting things needed for daily living?Patient sszqjbfa72/21/2023Housing Stability Vital SignAnswerDate RecordedIn the last 12 months, was there a time when you were not able to pay the mortgage or rent on time?Patient refused 05/30/2023Number of Places Lived in the Last YearNot on file05/30/2023In the last 12 months, was there a time when you did not have a steady place to sleep or slept in ashelter (including now)?Patient tguseni6505/30/2023CommentsNo Sex and Gender InformationValueDate RecordedSex Assigned at BirthNot on file Legal DjiGevugc73/15/2023 7:20 PM EDTGender IdentityNot on fileSexual OrientationNot on filedocumented as of this encounter Plan of Treatment DateTypeDepartmentCare Team (Latest Contact Info)Phjiuogppxu70/10/2025 8:30 AM ESTAncillary Procedure [facility] [place] [facility] [address] [place] [phone] 06/18/2025 5:30 PM ESTAncillary Procedure [facility] [place] [facility] [address] [place] [address] 06/08/2026 10:00 AM ESTOffice Visit [facility] [place] [facility] [address] [place] [address] Jose Luis Avilez MD [address] [place] [address] documented as of this encounter Procedures Procedure NamePriorityDate/TimeAssociated DiagnosisCommentsD-DIMER, QUANTITATIVE Kwdbvhv5505/27/2025 7:00 AM EST documented in this encounter Results * D-dimer, quantitative (05/27/2025 7:00 AM EST)ComponentValueRef RangeTest MethodAnalysis TimePerformed AtPathologist SignatureD-DIMER HIGH SENSITIVITY <2000 - 243 ng/mL05/27/2025 5:05 PM [facility]trComment: The reference range for D-dimer is <243 ng/mL D-dimer units. D-dimer results must be used in conjunction with a clinical pretest probability (PTP) assessment model for deep vein thrombosis (DVT) and pulmonary embolism (PE). Results <230 ng/mL d-dimer units can be used as a negative predictor in patients with low or moderate probability for DVT/PE. Results above the exclusion threshold of 230 ng/ml D-dimer units for DVT/PE may indicate the need for further diagnostic testing. D-Dimer can be increased in hospitalized patients due to co-morbid conditions. A hematocrit value greater than 55% may lead to inaccurate results in coagulation testing. Patients having hematocrit values >55% require a special collection tube for coagulation studies. Please contact the laboratory at [phone] for redraw instructions. Specimen (Source)Anatomical Location / LateralityCollection Method / Volume Collection TimeReceived TimeOtherTopography unknown / Ecucean6305/27/2025 7:00 AM EST05/27/2025 7:01 AM EST Narrative Authorizing ProviderResult TypeResult StatusMarquez WILLIAMSON BLOOD ORDERABLES Final ResultPerforming OrganizationAddressCity/State/ZIP CodePhone Number [facility] [address] [place] [address], [facility] [address] [place] [address] documented in this encounter Visit Diagnoses Not on filedocumented in this encounter Care Teams Team MemberRelationshipSpecialtyStart DateEnd Date Stephane Morales DO [address] [place] [address] PCP - GeneralFamily Medicine08/07/23documented as of this encounter
--- OUTSIDE RECORDS SUMMARY | 2025-06-10 08:08 | XMS_ITS | Encounter Summary ---
Author Organization [facility] Address [address] [place] [address] [place] [address] Care Team Providers Care Gas Welding Equipment Mechanic Name Role Phone Stephane Morales DO Primary Care Provider +1- [phone] Encounter Details DateTypeDepartmentCare Team (Latest Contact Info)Mruefjlqxtn77/24/2025amboo flowsheet [facility] [address] [place] [address] Stephane Morales, DO [address] [place] [address] Social History Tobacco UseTypesPacks/DayYears UsedDateSmoking [...] times a week05/30/2023How often do you attend mandaen or muslim services?1 to 4 times per year05/30/2023 Do you belong to any clubs or organizations such as mandaen groups, unions, fraIntellectSpace or athletic groups, or school groups?Yes05/30/2023How often do you attend meetings of the clubs or organizations you belong to?More than 4 times per year05/30/2023re you , , , , never , or living with a partner?Cseffqu3405/30/2023UDIT-CAnswerDate RecordedFrequency of Alcohol ConsumptionNot on file05/30/2023Q2: How many drinks containing alcohol do you have on a typical day when you are drinking?Patient bmkifvll57/21/2023Q3: How often do you have six or more drinks on one occasion?Patient declined 05/30/2023Overall Financial Resource Strain (CARDIA)AnswerDate RecordedHow hard is it for you to pay for the very basics like food, housing, medical care, and heating?Patient efvxtaab98/21/2023HQ-2AnswerDate RecordedPatient Health Questionnaire-2 Hrurk80508/02/2024[facility] [place] of Occupational Health - Occupational Stress QuestionnaireAnswerDate RecordedDo you feel stress - tense, restless, nervous, or anxious, or unable to sleep at night because yourmind is troubled all the time - these days?Only a hpujvy5905/30/2023Exercise Vital Sign AnswerDate RecordedOn average, how many days per week do you engage in moderate to strenuous exercise (like a brisk walk)?2 days05/30/2023On average, how many minutes do you engage in exercise at this level?20 min05/30/2023Hunger Vital SignAnswerDate RecordedWithin the past 12 months, you worried that your food would run out before you got the money to buymore.Patient hogrzjad09/21/2023 Within the past 12 months, the food you bought just didn't last and you didn't have money to get more.Patient buzlcawe72/21/2023RAPARE - TransportationAnswer Date RecordedIn the past 12 months, has lack of transportation kept you from medical appointments or from getting medications?Patient arfrusck30/21/2023In the past 12 months, has lack of transportation kept you from meetings, work, or from getting things needed for daily living?Patient /21/2023Housing Stability Vital SignAnswerDate RecordedIn the last 12 months, was there a time when you were not able to pay the mortgage or rent on time?Patient refused 05/30/2023Number of Places Lived in the Last YearNot on file05/30/2023In the last 12 months, was there a time when you did not have a steady place to sleep or slept in [facility] (including now)?Patient szasruu2605/30/2023CommentsNo Sex and Gender InformationValueDate RecordedSex Assigned at BirthNot on file Legal NxuLlcuwd88/15/2023 7:20 PM EDTGender IdentityNot on fileSexual OrientationNot on filedocumented as of this encounter Plan of Treatment DateTypeDepartmentCare Team (Latest Contact Info)Zayabmhnraa49/10/2025 8:30 AM ESTAncillary Procedure [facility] [place] [facility] [address] [place] [phone] 06/18/2025 5:30 PM ESTAncillary Procedure [facility] [place] [facility] [address] [place] [address] 06/08/2026 10:00 AM ESTOffice Visit [facility] [place] [facility] [address] [place] [address] Jose Luis Avilez MD [address] [place] [address] documented as of this encounter Visit Diagnoses Not on filedocumented in this encounter Care Teams Team MemberRelationshipSpecialtyStart DateEnd Date Stephane Morales DO [address] [place] [address] PCP - GeneralFamily Medicine08/07/23documented as of this encounter
--- OUTSIDE RECORDS SUMMARY | 2025-06-10 08:08 | XMS_ITS | Encounter Summary ---
Author Organization [facility] Address [address] [place] [address] Care Team Providers Care Filer Repairer Name Role Phone Stephane Morales DO Primary Care Provider +1- [phone] Encounter Details DateTypeDepartmentCare Team (Latest Contact Info)Vberuxbhsfo55/24/2025Travel Social History Tobacco UseTypesPacks/DayYears UsedDateSmoking Tobacco: NeverSmokeless [...] times a week05/30/2023How often do you attend jain or voodoo services?1 to 4 times per year05/30/2023 Do you belong to any clubs or organizations such as jain groups, unions, fraternal or athletic groups, or school groups?Yes05/30/2023How often do you attend meetings of the clubs or organizations you belong to?More than 4 times per year05/30/2023re you , , , , never , or living with a partner?Gvouejn8305/30/2023UDIT-CAnswerDate RecordedFrequency of Alcohol ConsumptionNot on file05/30/2023Q2: How many drinks containing alcohol do you have on a typical day when you are drinking?Patient sehzilob40/21/2023Q3: How often do you have six or more drinks on one occasion?Patient declined 05/30/2023Overall Financial Resource Strain (CARDIA)AnswerDate RecordedHow hard is it for you to pay for the very basics like food, housing, medical care, and heating?Patient ffvcahcn28/21/2023HQ-2AnswerDate RecordedPatient Health Questionnaire-2 Nziqq93408/02/2024[facility] [place] of Occupational Health - Occupational Stress QuestionnaireAnswerDate RecordedDo you feel stress - tense, restless, nervous, or anxious, or unable to sleep at night because yourmind is troubled all the time - these days?Only a yyufho6905/30/2023Exercise Vital Sign AnswerDate RecordedOn average, how many days per week do you engage in moderate to strenuous exercise (like a brisk walk)?2 days05/30/2023On average, how many minutes do you engage in exercise at this level?20 min05/30/2023Hunger Vital SignAnswerDate RecordedWithin the past 12 months, you worried that your food would run out before you got the money to buymore.Patient deleueuk00/21/2023 Within the past 12 months, the food you bought just didn't last and you didn't have money to get more.Patient /21/2023PRAPARE - TransportationAnswer Date RecordedIn the past 12 months, has lack of transportation kept you from medical appointments or from getting medications?Patient /21/2023In the past 12 months, has lack of transportation kept you from meetings, work, or from getting things needed for daily living?Patient wiojuxxw68/21/2023Housing Stability Vital SignAnswerDate RecordedIn the last 12 months, was there a time when you were not able to pay the mortgage or rent on time?Patient refused 05/30/2023Number of Places Lived in the Last YearNot on file05/30/2023In the last 12 months, was there a time when you did not have a steady place to sleep or slept in [place] (including now)?Patient nnpfxvz9705/30/2023CommentsNo Sex and Gender InformationValueDate RecordedSex Assigned at BirthNot on file Legal ColLrkjts47/15/2023 7:20 PM EDTGender IdentityNot on fileSexual OrientationNot on filedocumented as of this encounter Functional Status * Over the past 2 weeks, how often have you been bothered by any of the following problems?QuestionAnswerDate of AssessmentAuthorLittle interest or pleasure in doing thingsNot at all06/02/2025 12:25 PM Alise Merchant MA Feeling down, depressed, or hopelessNot at all06/02/2025 12:25 PM Alise Merchant MAPatient Health Questionnaire-2 Ddmjd10508/02/2024 12:25 PM Alise Merchant MA documented as of this encounter Plan of Treatment DateTypeDepartmentCare Team (Latest Contact Info)Typashrokfo85/10/2025 8:30 AM ESTAncillary Procedure [facility] [place] [facility] [address] [place] [phone] 06/18/2025 5:30 PM ESTAncillary Procedure [facility] [place] [facility] [address] [place] [address] 06/08/2026 10:00 AM ESTOffice Visit [facility] [place] [facility] [address] [place] [address] Jose Luis Avilez MD [address] [facility] [address] [place] [address] documented as of this encounter Visit Diagnoses Not on filedocumented in this encounter Care Teams Team MemberRelationshipSpecialtyStart DateEnd Date Stephane Morales DO [address] [facility] [address] [place] [address] PCP - GeneralFamily Medicine08/07/23documented as of this encounter
--- OUTSIDE RECORDS SUMMARY | 2025-06-10 08:08 | XMS_ITS | Encounter Summary ---
Author Organization [facility] Address [address] [place] [address] Care Team Providers Care Client Care Representative Name Role Phone Stephane Morales DO Primary Care Provider +1- [phone] Encounter Details DateTypeDepartmentCare Team (Latest Contact Info)Unqbpeigoeq73/19/2025Travel Social History Tobacco UseTypesPacks/DayYears UsedDateSmoking Tobacco: NeverSmokeless [...] times a week05/30/2023How often do you attend scientologist or denominational services?1 to 4 times per year05/30/2023 Do you belong to any clubs or organizations such as scientologist groups, unions, fraternal or athletic groups, or school groups?Yes05/30/2023How often do you attend meetings of the clubs or organizations you belong to?More than 4 times per year05/30/2023re you , , , , never , or living with a partner?Jhfdyhh3305/30/2023UDIT-CAnswerDate RecordedFrequency of Alcohol ConsumptionNot on file05/30/2023Q2: How many drinks containing alcohol do you have on a typical day when you are drinking?Patient ipgalazt11/21/2023Q3: How often do you have six or more drinks on one occasion?Patient declined 05/30/2023Overall Financial Resource Strain (CARDIA)AnswerDate RecordedHow hard is it for you to pay for the very basics like food, housing, medical care, and heating?Patient cmragalm63/21/2023HQ-2AnswerDate RecordedPatient Health Questionnaire-2 Byooz90407/26/2024[facility] [place] of Occupational Health - Occupational Stress QuestionnaireAnswerDate RecordedDo you feel stress - tense, restless, nervous, or anxious, or unable to sleep at night because yourmind is troubled all the time - these days?Only a cyvoqz4205/30/2023Exercise Vital Sign AnswerDate RecordedOn average, how many days per week do you engage in moderate to strenuous exercise (like a brisk walk)?2 days05/30/2023On average, how many minutes do you engage in exercise at this level?20 min05/30/2023Hunger Vital SignAnswerDate RecordedWithin the past 12 months, you worried that your food would run out before you got the money to buymore.Patient dqzpiyup46/21/2023 Within the past 12 months, the food you bought just didn't last and you didn't have money to get more.Patient rthedsyf59/21/2023PRAPARE - TransportationAnswer Date RecordedIn the past 12 months, has lack of transportation kept you from medical appointments or from getting medications?Patient kedytzbh37/21/2023In the past 12 months, has lack of transportation kept you from meetings, work, or from getting things needed for daily living?Patient ttivjwrd48/21/2023Housing Stability Vital SignAnswerDate RecordedIn the last 12 months, was there a time when you were not able to pay the mortgage or rent on time?Patient refused 05/30/2023Number of Places Lived in the Last YearNot on file05/30/2023In the last 12 months, was there a time when you did not have a steady place to sleep or slept in [place] (including now)?Patient drjrmnv1705/30/2023CommentsNo Sex and Gender InformationValueDate RecordedSex Assigned at BirthNot on file Legal KweOpdbem25/15/2023 7:20 PM EDTGender IdentityNot on fileSexual OrientationNot on filedocumented as of this encounter Plan of Treatment DateTypeDepartmentCare Team (Latest Contact Info)Tzlqhyvuyuq22/10/2025 8:30 AM ESTAncillary Procedure [facility] [place] [facility] [address] [place] [phone] 06/18/2025 5:30 PM ESTAncillary Procedure [facility] [place] [facility] [address] [place] [address] 06/08/2026 10:00 AM ESTOffice Visit [facility] [place] [facility] [address] [place] [phone] Jose Luis Avilez MD [address] [place] [address] documented as of this encounter Visit Diagnoses Not on filedocumented in this encounter Care Teams Team MemberRelationshipSpecialtyStart DateEnd Date Stephane Morales DO [address] [place] [address] PCP - GeneralFamily Medicine08/07/23documented as of this encounter
--- OUTSIDE RECORDS SUMMARY | 2025-06-10 08:08 | XMS_ITS | Encounter Summary ---
Author Organization [facility] Address [address] [place] [address] Care Team Providers Care Hvac Journeyman Name Role Phone Stephane Morales DO Primary Care Provider +1- [phone] Encounter Details DateTypeDepartmentCare Team (Latest Contact Info)Jfwoskdjihz66/26/2025Telephone [facility] [address] [place] [address] Stephane Morales, DO [address] [place] [address] Social History Tobacco UseTypesPacks/DayYears UsedDateSmoking [...] times a week05/30/2023How often do you attend buddhism or church services?1 to 4 times per year05/30/2023 Do you belong to any clubs or organizations such as buddhism groups, unions, fraternal or athletic groups, or school groups?Yes05/30/2023How often do you attend meetings of the clubs or organizations you belong to?More than 4 times per year05/30/2023re you , , , , never , or living with a partner?Tjcdnet3105/30/2023UDIT-CAnswerDate RecordedFrequency of Alcohol ConsumptionNot on file05/30/2023Q2: How many drinks containing alcohol do you have on a typical day when you are drinking?Patient shvkvtuj97/21/2023Q3: How often do you have six or more drinks on one occasion?Patient declined 05/30/2023Overall Financial Resource Strain (CARDIA)AnswerDate RecordedHow hard is it for you to pay for the very basics like food, housing, medical care, and heating?Patient /21/2023HQ-2AnswerDate RecordedPatient Health Questionnaire-2 Qavuw51108/02/2024[facility] [place] of Occupational Health - Occupational Stress QuestionnaireAnswerDate RecordedDo you feel stress - tense, restless, nervous, or anxious, or unable to sleep at night because yourmind is troubled all the time - these days?Only a cpyxhb1905/30/2023Exercise Vital Sign AnswerDate RecordedOn average, how many days per week do you engage in moderate to strenuous exercise (like a brisk walk)?2 days05/30/2023On average, how many minutes do you engage in exercise at this level?20 min05/30/2023Hunger Vital SignAnswerDate RecordedWithin the past 12 months, you worried that your food would run out before you got the money to buymore.Patient mhfnzpwo27/21/2023 Within the past 12 months, the food you bought just didn't last and you didn't have money to get more.Patient hbnozxog70/21/2023RAPARE - TransportationAnswer Date RecordedIn the past 12 months, has lack of transportation kept you from medical appointments or from getting medications?Patient bzzyzyvn55/21/2023In the past 12 months, has lack of transportation kept you from meetings, work, or from getting things needed for daily living?Patient pfvjcnty00/21/2023Housing Stability Vital SignAnswerDate RecordedIn the last 12 months, was there a time when you were not able to pay the mortgage or rent on time?Patient refused 05/30/2023Number of Places Lived in the Last YearNot on file05/30/2023In the last 12 months, was there a time when you did not have a steady place to sleep or slept in [facility] (including now)?Patient oxhmkhs7405/30/2023CommentsNo Sex and Gender InformationValueDate RecordedSex Assigned at BirthNot on file Legal PfkZzviaa84/15/2023 7:20 PM EDTGender IdentityNot on fileSexual OrientationNot on filedocumented as of this encounter Miscellaneous Notes * Telephone Encounter - Bianca Maher - 06/04/2025 9:24 AM EST Pt called wanting the order for the stress test with myocardial perfusion be sent to the [facility], so the authorization will say [facility]. They need it faxed to them at [phone]. Pt would like a call back at [phone] when this is sent over. documented in this encounter Plan of Treatment DateTypeDepartmentCare Team (Latest Contact Info)Xpjzjysnmmh58/10/2025 8:30 AM ESTAncillary Procedure [facility] [place] [facility] [address] [place] [address] 06/18/2025 5:30 PM ESTAncillary Procedure [facility] [place] [facility] [address] [place] [phone] 06/08/2026 10:00 AM ESTOffice Visit [facility] [place] [facility] [address] [place] [address] Jose Luis Avilez MD [address] [place] [address] documented as of this encounter Visit Diagnoses Not on filedocumented in this encounter Care Teams Team MemberRelationshipSpecialtyStart DateEnd Date Stephane Morales DO [address] [place] [address] PCP - GeneralFamily Medicine08/07/23documented as of this encounter
--- OUTSIDE RECORDS SUMMARY | 2025-06-10 08:08 | XMS_ITS | Encounter Summary ---
Author Organization [facility] Address [address] [place] [address] Care Team Providers Care First Helper Name Role Phone Willie Moralesew David DO Primary Care Provider [phone]- [phone] Encounter Details DateTypeDepartmentCare Team (Latest Contact Info)Rliaavhcgco21/18/2025External Result Encounter [facility] External Department Unsolicited Marquez Haney, PA [address] [facility] [email or web address] [facility] [address] [place] [address] Social History Tobacco UseTypesPacks/DayYears UsedDateSmoking [...] week05/30/2023How often do you attend scientologist or buddhist services?1 to 4 times per year05/30/2023 Do you belong to any clubs or organizations such as scientologist groups, unions, fraBlue Ant Media or athletic groups, or school groups?Yes05/30/2023How often do you attend meetings of the clubs or organizations you belong to?More than 4 times per year05/30/2023re you , , , , never , or living with a partner?Tpeefxq5005/30/2023UDIT-CAnswerDate RecordedFrequency of Alcohol ConsumptionNot on file05/30/2023Q2: How many drinks containing alcohol do you have on a typical day when you are drinking?Patient bqkvermn64/21/2023Q3: How often do you have six or more drinks on one occasion?Patient declined 05/30/2023Overall Financial Resource Strain (CARDIA)AnswerDate RecordedHow hard is it for you to pay for the very basics like food, housing, medical care, and heating?Patient zpiwxgiv31/21/2023HQ-2AnswerDate RecordedPatient Health Questionnaire-2 Wnieb80907/26/2024[facility] [place] of Occupational Health - Occupational Stress QuestionnaireAnswerDate RecordedDo you feel stress - tense, restless, nervous, or anxious, or unable to sleep at night because yourmind is troubled all the time - these days?Only a czesel5505/30/2023Exercise Vital Sign AnswerDate RecordedOn average, how many days per week do you engage in moderate to strenuous exercise (like a brisk walk)?2 days05/30/2023On average, how many minutes do you engage in exercise at this level?20 min05/30/2023Hunger Vital SignAnswerDate RecordedWithin the past 12 months, you worried that your food would run out before you got the money to buymore.Patient jaampdie00/21/2023 Within the past 12 months, the food you bought just didn't last and you didn't have money to get more.Patient mdvrctin30/21/2023RAPARE - TransportationAnswer Date RecordedIn the past 12 months, has lack of transportation kept you from medical appointments or from getting medications?Patient dzrlublx09/21/2023In the past 12 months, has lack of transportation kept you from meetings, work, or from getting things needed for daily living?Patient cytkfqug10/21/2023Housing Stability Vital SignAnswerDate RecordedIn the last 12 months, was there a time when you were not able to pay the mortgage or rent on time?Patient refused 05/30/2023Number of Places Lived in the Last YearNot on file05/30/2023In the last 12 months, was there a time when you did not have a steady place to sleep or slept in ashelter (including now)?Patient hutfdmt6505/30/2023CommentsNo Sex and Gender InformationValueDate RecordedSex Assigned at BirthNot on file Legal DtnDmrrmt89/15/2023 7:20 PM EDTGender IdentityNot on fileSexual OrientationNot on filedocumented as of this encounter Plan of Treatment DateTypeDepartmentCare Team (Latest Contact Info)Hwmkoghyver49/10/2025 8:30 AM ESTAncillary Procedure [facility] [place] [facility] [address] [place] [phone] 06/18/2025 5:30 PM ESTAncillary Procedure [facility] [place] [facility] [address] [place] [address] 06/08/2026 10:00 AM ESTOffice Visit [facility] [place] [facility] [address] [place] [phone] Jose Luis Avilez MD [address] [place] [address] documented as of this encounter Procedures Procedure NamePriorityDate/TimeAssociated DiagnosisCommentsIRON AND TOTAL IRON BINDING QRBLMCNCRaacois37/ 7:00 AM EST VITAMIN D 25 HYDROXY KEASCXygjobb04/18/2025 7:00 AM EST IRQPDFCHImzwfgb01/18/2025 7:00 AM EST VITAMIN G91Lqfsube30/18/2025 7:00 AM EST LIPID LDBUVWykrsds42/18/2025 7:00 AM EST COMPREHENSIVE METABOLIC BLYTNKnqmils02/18/2025 7:00 AM EST documented in this encounter Results * Vitamin D 25 hydroxy Total (05/27/2025 7:00 AM EST)ComponentValueRef RangeTest MethodAnalysis TimePerformed AtPathologist SignatureVITAMIN D 25 HYDROXY TOTAL 38.730 - 100 ng/mL05/27/2025 3:[address]trComment: VITAMIN D STATUS ?? 25(OH)VITAMIN D RANGE (ng/mL) Deficient <20 Insufficient 20 to <30 Sufficient ? 30 to 100 Reference: Stephanie MF,Michael NC, Micheal RAMIREZ, et al. Evaluation,treatment, and prevention of vitamin D deficiency; an Endocrine Society clinical practice guideline. JCEM. 2010; 96(7):1911-30. Specimen (Source)Anatomical Location / LateralityCollection Method / Volume Collection TimeReceived TimeOtherTopography unknown / Dgqpgef1505/27/2025 7:00 AM EST05/27/2025 7:01 AM EST Narrative Authorizing ProviderResult TypeResult StatusMarquez WILLIAMSON BLOOD ORDERABLES Final ResultPerforming OrganizationAddressCity/State/ZIP CodePhone Number [facility] [address] [place] [address], [facility] [address] [place] [address] * Vitamin B12 (05/27/2025 7:00 AM EST)ComponentValueRef RangeTest MethodAnalysis TimePerformed AtPathologist SignatureVITAMIN [id number] - 914 pg/mL05/27/2025 3:[address] [address] [facility] CtrSpecimen (Source)Anatomical Location / LateralityCollection Method / VolumeCollection TimeReceived TimeOther Topography unknown / Gexgfoz4105/27/2025 7:00 AM EST05/27/2025 7:01 AM EST Narrative Authorizing ProviderResult TypeResult StatusMarquez Haney [facility] B[facility] ORDER[facility] Final ResultPerforming OrganizationAddressty/State/ZIP CodePhone Number [facility] [address] [place] [address], [facility] [address] [place] [address] * Ferritin (05/27/2025 7:00 AM EST)ComponentValueRef RangeTest MethodAnalysis TimePerformed AtPathologist LrzpfxkedZHVGZTWZ80.511.0 - 306.8 ng/mL05/27/2025 3:[address] [facility] CtrSpecimen (Source)Anatomical Location / LateralityCollection Method / VolumeCollection TimeReceived TimeOther Topography unknown / Hhcfpak2605/27/2025 7:00 AM EST05/27/2025 7:01 AM EST Narrative Authorizing ProviderResult TypeResult StatusRyhenna Haney [facility] B[facility]OD ORDERABLES Final ResultPerforming OrganizationAddressty/State/ZIP CodePhone Number [facility] [address] [facility] [place] [address], [facility] [address] [place] [address] * (ABNORMAL) Lipid panel (05/27/2025 7:00 AM EST)ComponentValueRef RangeTest MethodAnalysis TimePerformed AtPathologist MyvxvvnbaDTNWAXXRBVM429209 - 200 mg/dL05/27/2025 2:[address] [address] [facility] CtrComment: Chol less than 200 mg/dl ?low risk Chol 201-239 mg/dl ?borderline risk Chol 240 mg/dl and greater ?high risk HDL UQZNAOSQEYT5014 - 92 mg/dL05/27/2025 2:[address] [address] [facility] CtrComment: HDL CHOL ATP-III CLASSIFICATION ? Cardiovascular ? Risk HDL > or equal to 60 mg/dL LOW HDL < 40 mg/dL HIGH TRIGLYCERIDE W/XMHQSC806 - 149 mg/dL05/27/2025 2:[address] [facility] [address] [facility] CtrComment: TRIG ATP III CLASSIFICATION TRIG less than 150 mg/dL ?Normal TRIG 150-199 mg/dL ?Borderline high TRIG 200-500 mg/dL ?High TRIG greater than 500 mg/dL ?? Very high Standard traceable to the Center for Disease Conrtrol and Prevention (CDC) test method. LDL CHOLESTEROL,MHDDGCCZFA264(H)0 - 100 mg/dL05/27/2025 2:[address] [facility] [address] [facility] CtrComment: LDL ATP III CLASSIFICATION LDL less than 100 mg/dL ? Optimal LDL 100-129 mg/dL ? Near or above optimal LDL 130-159 mg/dL ? Borderline high LDL 160-189 mg/dL ? High LDL greater than 189 mg/dL ?Very high VLDL SQEIINPTKAT25bx/dL05/27/2025 2:[address] [facility] CHOL/HDL RATIO3.2<5.011 2:[address] [facility] Specimen (Source)Anatomical Location / LateralityCollection Method / Volume Collection TimeReceived TimeOtherTopography unknown / Kxprwbm2305/27/2025 7:00 AM EST05/27/2025 7:01 AM EST Narrative Authorizing ProviderResult TypeResult StatusMarquez WILLIAMSON BLOOD ORDERABLES Final ResultPerforming OrganizationAddressCity/State/ZIP CodePhone Number [facility] [address] [place] [address], [facility] [address] [place] [address] * (ABNORMAL) Iron and TIBC (05/27/2025 7:00 AM EST)ComponentValueRef RangeTest MethodAnalysis TimePerformed AtPathologist RgcrqisbvZWBB3584 - 212 ug/dL 05/27/2025 2:[address] [facility] [facility] CtrTOTAL IRON BINDING HFNXUZTO606009 - 450 ug/dL05/27/2025 2:[address] [facility] % IRON SFYVUYKVQS73.4(L)20 - 50 %05/27/2025 2:[address] [facility] TuuRAFZXTCRLCC654769 - 362 mg/dL05/27/2025 2:[address] [facility] CtrSpecimen (Source)Anatomical Location / Laterality Collection Method / VolumeCollection TimeReceived TimeOtherTopography unknown / Ocnlxci8705/27/2025 7:00 AM EST05/27/2025 7:01 AM EST Narrative Authorizing ProviderResult TypeResult StatusMarquez WILLIAMSON BLOOD ORDERABLES Final ResultPerforming OrganizationAddressCity/State/ZIP CodePhone Number [facility] [address] [place] [address], [facility] [address] [place] [address] * (ABNORMAL) Comprehensive metabolic panel (05/27/2025 7:00 AM EST)Component ValueRef RangeTest MethodAnalysis TimePerformed AtPathologist SignatureGlucose 106(H)70 - 100 mg/dL05/27/2025 2:[address] [facility] Comment: Random Glucose Reference Range is dependent on time and content of last meal. Glucose of more than 200 mg/dL in a nonstressed, ambulatory subject supports the diagnosis of Diabetes Mellitus. ADA recommended reference range LAI922 - 25 mg/dL05/27/2025 2:[address] [facility] CtrCREATININE 0.930.60 - 1.20 mg/dL05/27/2025 2:[address] [facility] ESTIMATED GFR>60. 2:[address] [facility] BcnNmqkmf024 136 - 145 mmol/L107/27/2024 2:[address] [facility] [facility] CtrPotassium, Bld4.43.5 - 5.1 mmol/L107/27/2024 2:[address] [facility] Dyqtnppf27946 - 107 mmol/L107/27/2024 2:[address] [facility] Carbon Jkvorkp92.721.0 - 31.0 mmol/L107/27/2024 2:[address] [facility] [facility] CtrAnion Gap9.76.0 - 15.011 2:[address] [facility] [facility] CtrCalcium9.28.6 - 10.3 mg/dL05/27/2025 2:[address] [facility] [facility] CtrTOTAL PROTEIN6.76.4 - 8.9 g/dL05/27/2025 2:[address] [facility] CtrALBUMIN LEVEL4.23.5 - 5.7 g/dL05/27/2025 2:45 PM [facility] CtrGLOBULIN2.5g/dL05/27/2025 2:[address] [facility] CtrALBUMIN/GLOBULIN RATIO1.7107/27/2024 2:[address] [facility] CtrBILIRUBIN,TOTAL0.40.3 - 1.0 mg/dL05/27/2025 2:45 PM [facility] CtrASPARTATE AMINO PYXAOWKLKHO4521 - 39 U/L107/27/2024 2:[address] [facility] CtrALANINE WHDVJVSTZGLVNEDR268 - 52 U/L 05/27/2025 2:[address] [facility] CtrALKALINE BBDARVYAGPQ6620 - 104 U/L107/27/2024 2:[address] [facility] [facility] CtrSpecimen (Source) Anatomical Location / LateralityCollection Method / VolumeCollection Time Received TimeOtherTopography unknown / Xfxjyvi0305/27/2025 7:00 AM EST05/27/2025 7:01 AM EST Narrative Authorizing ProviderResult TypeResult StatusMarquez WILLIAMSON BLOOD ORDERABLES Final ResultPerforming OrganizationAddressCity/State/ZIP CodePhone Number [facility] [address] [place] [address], [facility] [address] [place] [address] documented in this encounter Visit Diagnoses Not on filedocumented in this encounter Care Teams Team MemberRelationshipSpecialtyStart DateEnd Date Stephane Morales DO [address] [place] [address] PCP - GeneralFamily Medicine08/07/23documented as of this encounter
--- OUTSIDE RECORDS SUMMARY | 2025-06-10 08:08 | XMS_ITS | Encounter Summary ---
Author Organization [facility] Address [address] [place] [address] Care Team Providers Care Head Silverman Name Role Phone Carmen Stephane David BAH Primary Care Provider +1- [phone] Encounter Details DateTypeDepartmentCare Team (Latest Contact Info)Mtxlpfxkypi76/19/2025Results Follow-Up [facility] [address] [facility] [address] [address] [place] [address] Marquez Haney, TAD [address] [facility] [address] [place] [address] CBC auto differential Social History Tobacco UseTypesPacks/DayYears UsedDateSmoking Tobacco: NeverSmokeless [...] times a week05/30/2023How often do you attend zoroastrian or episcopal services?1 to 4 times per year05/30/2023 Do you belong to any clubs or organizations such as zoroastrian groups, unions, fraternal or athletic groups, or school groups?Yes05/30/2023How often do you attend meetings of the clubs or organizations you belong to?More than 4 times per year05/30/2023re you , , , , never , or living with a partner?Nejdphz7805/30/2023UDIT-CAnswerDate RecordedFrequency of Alcohol ConsumptionNot on file05/30/2023Q2: How many drinks containing alcohol do you have on a typical day when you are drinking?Patient ifkeioan19/21/2023Q3: How often do you have six or more drinks on one occasion?Patient declined 05/30/2023Overall Financial Resource Strain (CARDIA)AnswerDate RecordedHow hard is it for you to pay for the very basics like food, housing, medical care, and heating?Patient sazyhsxc32/21/2023HQ-2AnswerDate RecordedPatient Health Questionnaire-2 Ixhwk33107/26/2024[facility] [place] of Occupational Health - Occupational Stress QuestionnaireAnswerDate RecordedDo you feel stress - tense, restless, nervous, or anxious, or unable to sleep at night because yourmind is troubled all the time - these days?Only a ovymmt3405/30/2023Exercise Vital Sign AnswerDate RecordedOn average, how many days per week do you engage in moderate to strenuous exercise (like a brisk walk)?2 days05/30/2023On average, how many minutes do you engage in exercise at this level?20 min05/30/2023Hunger Vital SignAnswerDate RecordedWithin the past 12 months, you worried that your food would run out before you got the money to buymore.Patient bojkrvdm88/21/2023 Within the past 12 months, the food you bought just didn't last and you didn't have money to get more.Patient gwzogyzw78/21/2023RAPARE - TransportationAnswer Date RecordedIn the past 12 months, has lack of transportation kept you from medical appointments or from getting medications?Patient qwxlxcyz63/21/2023In the past 12 months, has lack of transportation kept you from meetings, work, or from getting things needed for daily living?Patient arkvfsiq27/21/2023Housing Stability Vital SignAnswerDate RecordedIn the last 12 months, was there a time when you were not able to pay the mortgage or rent on time?Patient refused 05/30/2023Number of Places Lived in the Last YearNot on file05/30/2023In the last 12 months, was there a time when you did not have a steady place to sleep or slept in [facility] (including now)?Patient hyocbtm2705/30/2023CommentsNo Sex and Gender InformationValueDate RecordedSex Assigned at BirthNot on file Legal IaaKxlgfo80/15/2023 7:20 PM EDTGender IdentityNot on fileSexual OrientationNot on filedocumented as of this encounter Plan of Treatment DateTypeDepartmentCare Team (Latest Contact Info)Pnucsjldzhn84/10/2025 8:30 AM ESTAncillary Procedure [facility] [place] [facility] [address] [place] [phone] 06/18/2025 5:30 PM ESTAncillary Procedure [facility] [place] [facility] [address] [place] [address] 06/08/2026 10:00 AM ESTOffice Visit [facility] [place] [facility] [address] [place] [address] Jose Luis Avilez MD [address] [place] [address] documented as of this encounter Visit Diagnoses Not on filedocumented in this encounter Care Teams Team MemberRelationshipSpecialtyStart DateEnd Date Stephane Morales DO [address] [address] PCP - GeneralFamily Medicine08/07/23documented as of this encounter
--- OUTSIDE RECORDS SUMMARY | 2025-06-10 08:08 | XMS_ITS | Encounter Summary ---
Author Organization [facility] Address [address] [place] [address] Care Team Providers Care Radioactive Waste Disposal Dispatcher Name Role Phone Willie Moralesew David DO Primary Care Provider +1- [phone] Encounter Details DateTypeDepartmentCare Team (Latest Contact Info)Lilcnciapne69/18/2025External Result Encounter [facility] External Department Unsolicited Marquez Haney, PA [address] [facility] [address] [facility] [address] [place] [address] Social History Tobacco UseTypesPacks/DayYears UsedDateSmoking [...] times a week05/30/2023How often do you attend congregational or muslim services?1 to 4 times per year05/30/2023 Do you belong to any clubs or organizations such as congregational groups, unions, fraBuzzmove or athletic groups, or school groups?Yes05/30/2023How often do you attend meetings of the clubs or organizations you belong to?More than 4 times per year05/30/2023re you , , , , never , or living with a partner?Apmlvul1705/30/2023UDIT-CAnswerDate RecordedFrequency of Alcohol ConsumptionNot on file05/30/2023Q2: How many drinks containing alcohol do you have on a typical day when you are drinking?Patient /21/2023Q3: How often do you have six or more drinks on one occasion?Patient declined 05/30/2023Overall Financial Resource Strain (CARDIA)AnswerDate RecordedHow hard is it for you to pay for the very basics like food, housing, medical care, and heating?Patient /21/2023HQ-2AnswerDate RecordedPatient Health Questionnaire-2 Icroi07607/26/2024[facility] [place] of Occupational Health - Occupational Stress QuestionnaireAnswerDate RecordedDo you feel stress - tense, restless, nervous, or anxious, or unable to sleep at night because yourmind is troubled all the time - these days?Only a zjeojm9105/30/2023Exercise Vital Sign AnswerDate RecordedOn average, how many days per week do you engage in moderate to strenuous exercise (like a brisk walk)?2 days05/30/2023On average, how many minutes do you engage in exercise at this level?20 min05/30/2023Hunger Vital SignAnswerDate RecordedWithin the past 12 months, you worried that your food would run out before you got the money to buymore.Patient sjzfasae65/21/2023 Within the past 12 months, the food you bought just didn't last and you didn't have money to get more.Patient zlacyxkq53/21/2023RAPARE - TransportationAnswer Date RecordedIn the past 12 months, has lack of transportation kept you from medical appointments or from getting medications?Patient wwprronr27/21/2023In the past 12 months, has lack of transportation kept you from meetings, work, or from getting things needed for daily living?Patient mrgupesu41/21/2023Housing Stability Vital SignAnswerDate RecordedIn the last 12 months, was there a time when you were not able to pay the mortgage or rent on time?Patient refused 05/30/2023Number of Places Lived in the Last YearNot on file05/30/2023In the last 12 months, was there a time when you did not have a steady place to sleep or slept in [facility]helter (including now)?Patient ntlreju2705/30/2023CommentsNo Sex and Gender InformationValueDate RecordedSex Assigned at BirthNot on file Legal JujXjrvyg31/15/2023 7:20 PM EDTGender IdentityNot on fileSexual OrientationNot on filedocumented as of this encounter Plan of Treatment DateTypeDepartmentCare Team (Latest Contact Info)Zarfbjlwowf43/10/2025 8:30 AM ESTAncillary Procedure [facility] [place] [facility] [address] [place] [phone] 06/18/2025 5:30 PM ESTAncillary Procedure [facility] [place] [facility] [address] [place] [address] 06/08/2026 10:00 AM ESTOffice Visit [facility] [place] [facility] [address] [place] [phone] Jose Luis Avilez MD [address] [place] [address] documented as of this encounter Procedures Procedure NamePriorityDate/TimeAssociated DiagnosisCommentsMICROALBUMIN / CREATININE URINE SUJNKFpvmevh79/ 7:00 AM EST documented in this encounter Results * (ABNORMAL) Microalbumin / creatinine urine ratio (05/27/2025 7:00 AM EST) ComponentValueRef RangeTest MethodAnalysis TimePerformed AtPathologist SignatureMICROALBUMIN, URINE5.6(H)0.0 - 1.8 mg/dL05/27/2025 2:50 PM EST [facility] CtrCREATININE, URINE (RANDOM)206.00mg/dL05/27/2025 2:50 PM [facility] CtrComment:No reference range establishedMICROALBUMIN/CREATININE RATIO27.20.0 - 30.0 mg/g107/27/2024 2:50 PM [facility] CtrComment: 30-300 mg/g indicates an increased risk for diabetic nephropathy. ??Greater than 300 mg/g is consistent with clinical nephropathy. ??(Am. J. Kidney Disease 1995, 25:107) Specimen (Source)Anatomical Location / LateralityCollection Method / Volume Collection TimeReceived GywiNufyv19/18/2025 7:00 AM EST05/27/2025 7:01 AM EST Narrative Authorizing ProviderResult TypeResult StatusMarquez WILLIAMSON URINE ORDERABLES Final ResultPerforming OrganizationAddressCity/State/ZIP CodePhone Number COUNTS INCLUDE [facility] AT [facility] [address] [place] [address], [facility] [address] [place] [address] documented in this encounter Visit Diagnoses Not on filedocumented in this encounter Care Teams Team MemberRelationshipSpecialtyStart DateEnd Date Stephane Morales DO [address] [place] [address] PCP - GeneralFamily Medicine08/07/23documented as of this encounter
--- OUTSIDE RECORDS SUMMARY | 2025-06-10 08:08 | XMS_ITS | Encounter Summary ---
Author Organization [facility] Address [address] [place] [address] Care Team Providers Care Transition Specialist Name Role Phone Willie Moralesew David DO Primary Care Provider [phone] Encounter Details DateTypeDepartmentCare Team (Latest Contact Info)Pkvourzenxs09/18/2025External Result Encounter [facility] Unsolicited Marquez Haney, [place] [address] [facility] [address] [place] [address] Social History Tobacco UseTypesPacks/DayYears UsedDateSmoking [...] times a week05/30/2023How often do you attend christian or faith services?1 to 4 times per year05/30/2023 Do you belong to any clubs or organizations such as christian groups, unions, [employer] or athletic groups, or school groups?Yes05/30/2023How often do you attend meetings of the clubs or organizations you belong to?More than 4 times per year05/30/2023re you , , , , never , or living with a partner?Xqtbxwz4005/30/2023UDIT-CAnswerDate RecordedFrequency of Alcohol ConsumptionNot on file05/30/2023Q2: How many drinks containing alcohol do you have on a typical day when you are drinking?Patient qsqitkgs86/21/2023Q3: How often do you have six or more drinks on one occasion?Patient declined 05/30/2023Overall Financial Resource Strain (CARDIA)AnswerDate RecordedHow hard is it for you to pay for the very basics like food, housing, medical care, and heating?Patient krehqqdf49/21/2023HQ-2AnswerDate RecordedPatient Health Questionnaire-2 Vywua30407/26/2024[facility] [place] [facility] - Occupational Stress QuestionnaireAnswerDate RecordedDo you feel stress - tense, restless, nervous, or anxious, or unable to sleep at night because yourmind is troubled all the time - these days?Only a ziyjps1505/30/2023Exercise Vital Sign AnswerDate RecordedOn average, how many days per week do you engage in moderate to strenuous exercise (like a brisk walk)?2 days05/30/2023On average, how many minutes do you engage in exercise at this level?20 min05/30/2023Hunger Vital SignAnswerDate RecordedWithin the past 12 months, you worried that your food would run out before you got the money to buymore.Patient /21/2023 Within the past 12 months, the food you bought just didn't last and you didn't have money to get more.Patient /21/2023RAPARE - TransportationAnswer Date RecordedIn the past 12 months, has lack of transportation kept you from medical appointments or from getting medications?Patient qkgolsiz17/21/2023In the past 12 months, has lack of [...] sleep or slept in ashelter (including now)?Patient oxyphzw7305/30/2023CommentsNo Sex and Gender InformationValueDate RecordedSex Assigned at BirthNot on file Legal ZstUlimul65/15/2023 7:20 PM EDTGender IdentityNot on fileSexual OrientationNot on filedocumented as of this encounter Plan of Treatment DateTypeDepartmentCare Team (Latest Contact Info)Ndjtdwzngdq80/10/2025 8:30 AM ESTAncillary Procedure [facility] [place] [facility] [address] [place] [phone] 06/18/2025 5:30 PM ESTAncillary Procedure [facility] [place] [facility] [address] [place] [phone] 06/08/2026 10:00 AM ESTOffice Visit [facility] [place] [facility] [address] [place] [phone] Jose Luis Avilez MD [address] [place] [address] documented as of this encounter Procedures Procedure NamePriorityDate/TimeAssociated DiagnosisCommentsCBC WITH AUTO OGLNNRNTKXTDQwgeymx09/18/2025 7:00 AM EST documented in this encounter Results * CBC auto differential (05/27/2025 7:00 AM EST)ComponentValueRef RangeTest MethodAnalysis TimePerformed AtPathologist SignatureWBC6.93.8 - 11.6 [CFU]/mL 05/27/2025 2:23 PM [facility] CtrUNCORRECTED WHITE BLOOD COUNT6.93.8 - 11.6 10*3/uL05/27/2025 2:23 PM [facility] RBC4.813.60 - 5.00 10*6/uL05/27/2025 2:23 PM [facility] IGUBFBJVSC26.011.8 - 15.4 g/dL05/27/2025 2:23 PM [facility] VchNDSXDCSWCD18.634.0 - 46.4 %05/27/2025 2:23 PM [facility] RloMUT87.680 - 100 fL05/27/2025 2:23 PM [facility] YyqFHV83.124.7 - 34.3 pg05/27/2025 2:23 PM [facility] MCHC33.632.0 - 35.0 g/dL05/27/2025 2:23 PM [facility] RED CELL DISTRIBUTION WIDTH, RDW13.311.9 - 15.3 %05/27/2025 2:23 PM [facility] CtrPLATELET [id number] - 450 10*3/uL05/27/2025 2:23 PM [facility] CtrMEAN PLATELET VOLUME, MPV7.66.3 - 10.7 fL05/27/2025 2:23 PM [facility] CtrNEUTROPHILS, %54.8. %05/27/2025 2:23 PM [facility] CtrLYMPHOCYTES, %37.2. % 05/27/2025 2:23 PM [facility] CtrMONOCYTE/MACROPHAGE, %5.0. %05/27/2025 2:23 PM [facility] CtrEOSINOPHILS, %2.1. % 05/27/2025 2:23 PM [facility] CtrBASOPHILS, %0.9. % 05/27/2025 2:23 PM [facility] CtrNRBC0.10 - 0.5 /100{WBC} 05/27/2025 2:23 PM [facility] CtrNEUTROPHILS3.81.8 - 7.7 10*3/uL05/27/2025 2:23 PM [facility] CtrLYMPHOCYTES2.61.00 - 4.8 10*3/uL05/27/2025 2:23 PM [facility] CtrMONOCYTES0.3 0.0 - 0.8 10*3/uL05/27/2025 2:23 PM [facility] EOSINOPHILS0.10.0 - 0.45 10*3/uL05/27/2025 2:23 PM [facility] CtrBASOPHILS0.10.0 - 0.2 10*3/uL05/27/2025 2:23 PM [facility] CtrSpecimen (Source)Anatomical Location / Laterality Collection Method / VolumeCollection TimeReceived TimeBlood (Blood)05/27/2025 7:00 AM EST05/27/2025 7:01 AM EST Narrative Authorizing ProviderResult TypeResult StatusMarquez WILLIAMSON BLOOD ORDERABLES Final ResultPerforming OrganizationAddressCity/State/ZIP CodePhone Number [facility] [address] [place] [address], [facility] [address] [place] [address] documented in this encounter Visit Diagnoses Not on filedocumented in this encounter Care Teams Team MemberRelationshipSpecialtyStart DateEnd Date Stephane Morales DO [address] [facility] [address] [place] [address] PCP - GeneralFamily Medicine08/07/23documented as of this encounter
--- OUTSIDE RECORDS SUMMARY | 2025-06-10 08:08 | XMS_ITS | Clinical Summary ---
Author Organization [facility] Address [address] [place] [address] Care Team Providers Care Certified Rehabilitation Counselor Name Role Phone Stephane Morales DO Primary Care Provider [phone] Allergies Active AllergyReactionsCriticalityNoted DateCommentsBee PrhcmFalskvo92/28/2022 Medications MedicationSigDispense QuantityRefillsLast FilledStart DateEnd DateStatus Qhyftsq-Ealsxedmdgo-Tiowzaqpcq (Breztri Aerosphere) 160-9-4.8 MCG/ACT aerosol 1 puff every 12 (twelve) hours.Active cinnamon 500 MG capsule as directed OrallyActive Cyanocobalamin (Vitamin B12) 1000 MCG tablet controlled-release 1 (one) time each day at the same time.Active Multiple Vitamins-Minerals (Womens Daily Formula) tablet OrallyActive Zinc-Vitamin C 23-100 MG lozenge 1 lozenge 1 (one) time each day at the same time.Active MISC NATURAL PRODUCTS PO Take by mouth. Beet rootActive Turmeric 500 MG capsule Take by mouth.Active albuterol HFA 90 mcg/act inhaler Indications:Reactive airway disease without complication, unspecified asthma severity, unspecified whether persistent (HCC)inhale 2 puffs by mouth and INTO THE LUNGS every 6 hours if needed 25 for 25 18 g 5Active cyclobenzaprine (Flexeril) 10 MG tablet Take 10 mg by mouth 3 (three) times a day as needed for muscle spasmsActive cyanocobalamin (Vitamin B-12) 1000 MCG/ML injection Indications:Vitamin B12 deficiencyInject 1 mL (1,000 mcg) into the shoulder, thigh, or buttocks 1 (one) time per week 4 mL tive cyclobenzaprine (Flexeril) 10 MG tablet Indications:Cervical paraspinal muscle spasmTake 1 tablet (10 mg) by mouth 3 (three) times a day as needed for muscle spasms (q8hrs) 20 tablet Discontinued(Therapy completed) Active Problems ProblemNoted DateDiagnosed DateColon cancer /29/2024 Resolved Problems ProblemNoted DateDiagnosed DateResolved DateIron deficiency cvyxvd4301/16/2023 01/16/2023Obesity (BMI 30-39.9)Vitamin D deficiency yspneaisorder of chriqn4104/07/2020 01/16/2023Impaired fasting yodnkzr47 Encounters DateTypeDepartmentCare DowzHnbshacdifn20/26/2025Telephone [facility] [address] [place] [address] Stephane Morales DO 06/02/2025 12:15 PM ESTOffice Visit [facility]ly [facility] [address] [place] [address] Stephane Morales, Chest pain, unspecified type (Primary Dx); Vitamin B12 deficiency; Routine general medical examination at a health care facility; Chest tightness; IFG (impaired fasting glucose)06/02/2025amboo flowsheet [facility] [address] [place] [address] Stephane Morales DO 06/02/20250073Kvydml39/19/2025 2:00 PM ESTOffice Visit [facility] [address] [place] [address] Jose Luis Avilez MD Well woman exam with routine gynecological exam (Primary Dx); PMB (postmenopausal bleeding)05/28/2025[facility] [address] [place] [address] Madison Parson MA 05/28/2025Results Follow-Up [facility] [address] [place] [address] Marquez Haney, PA CBC auto abgvqmmbzjrz82/19/1768Feikyl57/18/2025External Result Encounter [facility] External Department Unsolicited Marquez Haney, PA 05/27/2025External Result Encounter [facility] External Department Unsolicited Marquez Haney, PA 05/27/2025External Result Encounter [facility] External Department Unsolicited Marquez Haney, PA 05/27/2025External Result Encounter [facility] External Department Unsolicited Marquez Haney, PA 05/27/2025External Result Encounter [facility] External Department Unsolicited Marquez Haney, PA 05/26/2025 3:00 PM ESTOffice Visit [facility] [address] [place] [address] Marquez Haney PA Palpitations (Primary Dx); Chest tightness; Lightheadedness; Family history of heart disease; Vitamin D deficiency; Cervical paraspinal muscle spasm05/26/20256490Iikprv95/17/2025[facility] [address] [place] [address] Stephane Morales DO Appointment Xsixtpu5505/01/2025[facility] [address] [place] [address] Jose Luis Avilez MD from Last 3 Months Family History Medical HistoryRelationNameCommentsHyperlipidemiaFatherPaternalHypertension FatherPaternalOsteoarthritisFatherPaternalHyperlipidemiaMotherMaternal HypertensionMotherMaternalKidney diseaseMotherMaternalRelationNameStatusComments BrotherAliveDaughterAliveFatherPaternalAliveMotherMaternalDeceasedSisterAliveSon Alive Social History Tobacco UseTypesPacks/DayYears UsedDateSmoking Tobacco: NeverSmokeless Tobacco: Never Tobacco Cessation:Counseling Given: No Alcohol UseStandard Drinks/WeekCommentsNever0 (1 standard drink = 0.6 [...] times a week05/30/2023How often do you attend hindu or synagogue services?1 to 4 times per year05/30/2023 Do you belong to any clubs or organizations such as hindu groups, unions, fraternal or athletic groups, or school groups?Yes05/30/2023How often do you attend meetings of the clubs or organizations you belong to?More than 4 times per year05/30/2023re you , , , , never , or living with a partner?Wwbxjpw6705/30/2023UDIT-CAnswerDate RecordedFrequency of Alcohol ConsumptionNot on file05/30/2023Q2: How many drinks containing alcohol do you have on a typical day when you are drinking?Patient /21/2023Q3: How often do you have six or more drinks on one occasion?Patient declined 05/30/2023Overall Financial Resource Strain (CARDIA)AnswerDate RecordedHow hard is it for you to pay for the very basics like food, housing, medical care, and heating?Patient idivllft39/21/2023HQ-2AnswerDate RecordedPatient Health Questionnaire-2 Skcvl55908/02/2024[facility] [place] [facility] Occup[facility] - Occupational Stress QuestionnaireAnswerDate RecordedDo you feel stress - tense, restless, nervous, or anxious, or unable to sleep at night because yourmind is troubled all the time - these days?Only a ckgckf5105/30/2023Exercise Vital Sign AnswerDate RecordedOn average, how many [...] you didn't have money to get more.Patient pueyslod15/21/2023RAPARE - TransportationAnswer Date RecordedIn the past 12 months, has lack of transportation kept you from medical appointments or from getting medications?Patient oewrfymw06/21/2023In the past 12 months, has lack of transportation kept you from meetings, work, or from getting things needed for daily living?Patient wuhcnnmb59/21/2023Housing Stability Vital SignAnswerDate RecordedIn the last 12 months, was there a time when you were not able to pay the mortgage or rent on time?Patient refused 05/30/2023Number of Places Lived in the Last YearNot on file05/30/2023In the last 12 months, was there a time when you did not have a steady place to sleep or slept in ashelter (including now)?Patient kkfdmes9405/30/2023CommentsNo Sex and Gender InformationValueDate RecordedSex Assigned at BirthNot on file Legal TreFjyont06/15/2023 7:20 PM EDTGender IdentityNot on fileSexual OrientationNot on file Last Filed Vital Signs Vital SignReadingTime TakenCommentsBlood Psegdhuo802/7206/02/2025 12:26 PM EST Rjqsz838606/02/2025 12:26 PM WEDRvfhrelqfvp00.1 ??C (97 ??F)06/02/2025 12:26 PM ESTRespiratory Rate--Oxygen Qxhhtoetfk61%06/02/2025 12:26 PM ESTInhaled Oxygen Concentration--Nzkcmq07.1 kg (170 lb)06/02/2025 12:26 PM DJCJxvhza906.1 cm (5' 5 )06/02/2025 12:26 PM ESTBody Mass Index28.29108/02/2024 12:26 PM EST Plan of Treatment DateTypeDepartmentCare Team (Latest Contact Info)Jftcxxqsarr46/10/2025 8:30 AM ESTAncillary Procedure [facility] [place] [facility] [address] [place] [phone] 06/18/2025 5:30 PM ESTAncillary Procedure [facility] [place] [facility] [address] [place] [address] 06/08/2026 10:00 AM ESTOffice Visit [facility] [place] [facility] [address] [place] [phone] Jose Luis Avilez MD [address] [place] [address] Health MaintenanceDue DateLast DoneCommentsCT Sowzbhyhceaq1969FIT-DNA 1969FIT1969FOBT1969Phmtoyirvmdkn1969Pneumococcal Vaccine: Pediatrics (0 to 5 Years) and At-Risk Patients (6 to 64 Years) (1 of 2 - PCV)1988HPV/Rklymg7503/01/1999COVID-19 Vaccine ( - 2024- season) 2025Influenza Vaccine (#1)Mammogram06/12/2025 06/12/2024, 06/06/2023, 05/26/2022, Additional history existsCervical Cancer Izizyfkcl72/27/2026Pap Smear6009/05/20226902Bdsopkicuaa68/19/203404/, 10/24/2023, 10/23/2023olorectal Cancer Nprpvehpy10/19/2034 Procedures Procedure NamePriorityDate/TimeAssociated DiagnosisCommentsHEMOGLOBIN A1C WITH TEHYsbetyb35/18/2025 7:00 AM EST D-DIMER, UOKVBHAMGQKRSzvffjp25/18/2025 7:00 AM EST VITAMIN D 25 HYDROXY UALJCKsnsrow32/18/2025 7:00 AM EST VITAMIN M54Fztsohu06/18/2025 7:00 AM EST ZNMNEYDBJpmyajv27/18/2025 7:00 AM EST MICROALBUMIN / CREATININE URINE HQPVNNgqekda80/18/2025 7:00 AM EST LIPID OQCJFIxrbcik45/18/2025 7:00 AM EST IRON AND TOTAL IRON BINDING JRFDIWXAVttvcrw62/18/2025 7:00 AM EST COMPREHENSIVE METABOLIC EHVFPHoarhsn41/18/2025 7:00 AM EST CBC WITH AUTO SOCFPXDBIMRUFwjnvum48/18/2025 7:00 AM EST BI MAMMOGRAM SCREENING TOMOSYNTHESIS ZRRLUBPWGJfgpatq62/04/2024 4:26 PM EST Other screening mammogram XJYQUYGGFQBEcwluhp98/19/2024 9:37 AM EDTTHINPREP TIS PAP AND HPV MRNA E6/E7 REFLEX HPV 16,18/45 (71565)Agukvkd3209/05/2022 from Last 3 Months or Most Recently Relevant to Health Maintenance Results * (ABNORMAL) Hemoglobin a1c with eag (05/27/2025 7:00 AM EST)ComponentValueRef RangeTest MethodAnalysis TimePerformed AtPathologist SignatureHEMOGLOBIN A1C 5.9(H)4.3 - 5.6 %05/28/2025 8:12 AM [facility]trComment: Increased risk for diabetes: 5.7 - 6.4 diabetes: >6.4 glycemic control for adults with diabetes: <7.0 ESTIMATED AVERAGE URILVAZ615xj/dL05/28/2025 8:12 AM [facility] CtrSpecimen (Source)Anatomical Location / LateralityCollection Method / VolumeCollection TimeReceived TimeBlood (Blood)05/27/2025 7:00 AM EST05/27/2025 7:01 AM EST Narrative Authorizing ProviderResult TypeResult StatusMarquez WILLIAMSON BLOOD ORDERABLES Final ResultPerforming OrganizationAddressCity/State/ZIP CodePhone Number [facility] [address] [place] [address], [facility] [address] [place] [address] * CBC auto differential (05/27/2025 7:00 AM EST)ComponentValueRef RangeTest MethodAnalysis TimePerformed AtPathologist SignatureWBC6.93.8 - 11.6 [CFU]/mL 05/27/2025 2:23 PM [facility] CtrUNCORRECTED WHITE BLOOD COUNT6.93.8 - 11.6 10*3/uL05/27/2025 2:23 PM [facility] RBC4.813.60 - 5.00 10*6/uL05/27/2025 2:23 PM [facility] EKBUJEYXVT76.011.8 - 15.4 g/dL05/27/2025 2:23 PM [facility] BhvADNHLVMXWA76.634.0 - 46.4 %05/27/2025 2:23 PM [facility] UwaARH95.680 - 100 fL05/27/2025 2:23 PM [facility] BegXQR05.124.7 - 34.3 pg05/27/2025 2:23 PM [facility] MCHC33.632.0 - 35.0 g/dL05/27/2025 2:23 PM [facility] RED CELL DISTRIBUTION WIDTH, RDW13.311.9 - 15.3 %05/27/2025 2:23 PM [facility] CtrPLATELET CTHNQ600394 - 450 10*3/uL05/27/2025 2:23 PM [facility] CtrMEAN PLATELET VOLUME, MPV7.66.3 - 10.7 fL05/27/2025 2:23 PM [facility] CtrNEUTROPHILS, %54.8. %05/27/2025 2:23 PM [facility] CtrLYMPHOCYTES, %37.2. % 05/27/2025 2:23 PM [facility] CtrMONOCYTE/MACROPHAGE, %5.0. %05/27/2025 2:23 PM [facility] CtrEOSINOPHILS, %2.1. % 05/27/2025 2:23 PM [facility] CtrBASOPHILS, %0.9. % 05/27/2025 2:23 PM [facility] CtrNRBC0.10 - 0.5 /100{WBC} 05/27/2025 2:23 PM [facility] CtrNEUTROPHILS3.81.8 - 7.7 10*3/uL05/27/2025 2:23 PM [facility] CtrLYMPHOCYTES2.61.00 - 4.8 10*3/uL05/27/2025 2:23 PM [facility] CtrMONOCYTES0.3 0.0 - 0.8 10*3/uL05/27/2025 2:23 PM [facility] EOSINOPHILS0.10.0 - 0.45 10*3/uL05/27/2025 2:23 PM [facility] CtrBASOPHILS0.10.0 - 0.2 10*3/uL05/27/2025 2:23 PM [facility] CtrSpecimen (Source)Anatomical Location / Laterality Collection Method / VolumeCollection TimeReceived TimeBlood (Blood)05/27/2025 7:00 AM EST05/27/2025 7:01 AM EST Narrative Authorizing ProviderResult TypeResult StatusRyhenna Griselda Haney [facility] BLOOD ORDERABLES Final ResultPerforming OrganizationAddressCity/State/ZIP CodePhone Number [facility] [address] [place] [address], [facility] [address] [place] [address] * (ABNORMAL) Iron and TIBC (05/27/2025 7:00 AM EST)ComponentValueRef RangeTest MethodAnalysis TimePerformed AtPathologist QyrxvbcxyYRUL1767 - 212 ug/dL 05/27/2025 2:45 PM [facility] CtrTOTAL IRON BINDING WCZJLHOT305707 - 450 ug/dL05/27/2025 2:45 PM [facility] % IRON DMTEWWEDOD40.4(L)20 - 50 %05/27/2025 2:45 PM [facility] JcbBETOQAXZVLE172233 - 362 mg/dL05/27/2025 2:45 PM [facility] CtrSpecimen (Source)Anatomical Location / Laterality Collection Method / VolumeCollection TimeReceived TimeOtherTopography unknown / Tcxbfqk5405/27/2025 7:00 AM EST05/27/2025 7:01 AM EST Narrative Authorizing ProviderResult TypeResult StatusRyhenna Griselda Haney [facility] BLOOD ORDERABLES Final ResultPerforming OrganizationAddressCity/State/ZIP CodePhone Number [facility] [address] [place] [address], [facility] [address] [place] [address] * (ABNORMAL) Microalbumin / creatinine urine ratio (05/27/2025 7:00 AM EST) ComponentValueRef RangeTest MethodAnalysis TimePerformed AtPathologist SignatureMICROALBUMIN, URINE5.6(H)0.0 - 1.8 mg/dL05/27/2025 2:50 PM [facility] CtrCREATININE, URINE (RANDOM)206.00mg/dL05/27/2025 2:50 PM [facility] CtrComment:No reference range establishedMICROALBUMIN/CREATININE RATIO27.20.0 - 30.0 mg/g107/27/2024 2:50 PM [facility] CtrComment: 30-300 mg/g indicates an increased risk for diabetic nephropathy. ??Greater than 300 mg/g is consistent with clinical nephropathy. ??(Am. J. Kidney Disease 1995, 25:107) Specimen (Source)Anatomical Location / LateralityCollection Method / Volume Collection TimeReceived MmsrMndme70/18/2025 7:00 AM EST05/27/2025 7:01 AM EST Narrative Authorizing ProviderResult TypeResult StatusRyhenna Haney PALAB URINE ORDERABLES Final ResultPerforming OrganizationAddressCity/State/ZIP CodePhone Number [facility] [address] [place] [address], [facility] [address] [place] [address] * Vitamin D 25 hydroxy Total (05/27/2025 7:00 AM EST)ComponentValueRef RangeTest MethodAnalysis TimePerformed AtPathologist SignatureVITAMIN D 25 HYDROXY TOTAL38.730 - 100 ng/mL05/27/2025 3:12 PM [facility] Comment: VITAMIN D STATUS ?? 25(OH)VITAMIN D RANGE (ng/mL) Deficient <20 Insufficient 20 to <30 Sufficient ? 30 to 100 Reference: Stephanie MF,Michael NC, Micheal RAMIREZ, et al. Evaluation,treatment, and prevention of vitamin D deficiency; an Endocrine Society clinical practice guideline. JCEM. 2010; 96(7):1911-30. Specimen (Source)Anatomical Location / LateralityCollection Method / Volume Collection TimeReceived TimeOtherTopography unknown / Zblcqyt3605/27/2025 7:00 AM EST05/27/2025 7:01 AM EST Narrative Authorizing ProviderResult TypeResult StatusRyhenna Haney PALAB BLOOD ORDERABLES Final ResultPerforming OrganizationAddressty/State/ZIP CodePhone Number [facility] [address] [place] [address], [facility] [address] [place] [address] * D-dimer, quantitative (05/27/2025 7:00 AM EST)ComponentValueRef RangeTest MethodAnalysis TimePerformed AtPathologist SignatureD-DIMER HIGH SENSITIVITY <2000 - 243 ng/mL05/27/2025 5:05 PM [facility] CtrComment: The reference range for D-dimer [...] coagulation studies. Please contact the laboratory at [phone] for redraw instructions. Specimen (Source)Anatomical Location / LateralityCollection Method / Volume Collection TimeReceived TimeOtherTopography unknown / Cthfdqo2305/27/2025 7:00 AM EST05/27/2025 7:01 AM EST Narrative Authorizing ProviderResult TypeResult StatusRyan [employer] [facility] BLOOD ORDERABLES Final ResultPerforming OrganizationAddressCity/State/ZIP CodePhone Number [address] [address], [address] [address] * Ferritin (05/27/2025 7:00 AM EST)ComponentValueRef RangeTest MethodAnalysis TimePerformed AtPathologist OllncrrbfIUGVHATT94.511.0 - 306.8 ng/mL05/27/2025 3:06 PM [facility] CtrSpecimen (Source)Anatomical Location / LateralityCollection Method / VolumeCollection TimeReceived TimeOther Topography unknown / Lctifez6105/27/2025 7:00 AM EST05/27/2025 7:01 AM EST Narrative Authorizing ProviderResult TypeResult StatusRyan Haney [facility] BLOOD ORDERABLES Final ResultPerforming OrganizationAddressCity/State/ZIP CodePhone Number [address] [address], [facility] [address] [place] [address] * Vitamin B12 (05/27/2025 7:00 AM EST)ComponentValueRef RangeTest MethodAnalysis TimePerformed AtPathologist SignatureVITAMIN L67701991 - 914 pg/mL05/27/2025 3:09 PM [facility] CtrSpecimen (Source)Anatomical Location / LateralityCollection Method / VolumeCollection TimeReceived TimeOther Topography unknown / Awbxjqb3005/27/2025 7:00 AM EST05/27/2025 7:01 AM EST Narrative Authorizing ProviderResult TypeResult StatusMarquez WILLIAMSON BLOOD ORDERABLES Final ResultPerforming OrganizationAddressCity/State/[facility] CodePhone Number [facility] [address] [place] [address], [facility] [address] [place] [address] * (ABNORMAL) Lipid panel (05/27/2025 7:00 AM EST)ComponentValueRef RangeTest MethodAnalysis TimePerformed AtPathologist JgjwykavmQAXRFHVYCCJ812519 - 200 mg/dL05/27/2025 2:45 PM [facility] CtrComment: Chol less than 200 mg/dl ?low risk Chol 201-239 mg/dl ?borderline risk Chol 240 mg/dl and greater ?high risk HDL MKIFBAHYSAO1835 - 92 mg/dL05/27/2025 2:45 PM [facility] CtrComment: HDL CHOL ATP-III CLASSIFICATION ? Cardiovascular ? Risk HDL > or equal to 60 mg/dL LOW HDL < 40 mg/dL HIGH TRIGLYCERIDE W/ZHCBPV610 - 149 mg/dL05/27/2025 2:45 PM [facility] CtrComment: TRIG ATP III CLASSIFICATION TRIG less than 150 mg/dL ?Normal TRIG 150-199 mg/dL ?Borderline high TRIG 200-500 mg/dL ?High TRIG greater than 500 mg/dL ?? Very high Standard traceable to the Center for Disease Conrtrol and Prevention (CDC) test method. LDL CHOLESTEROL,DSKUJJLIKM179(H)0 - 100 mg/dL05/27/2025 2:45 PM [facility] CtrComment: LDL ATP III CLASSIFICATION LDL less than 100 mg/dL ? Optimal LDL 100-129 mg/dL ? Near or above optimal LDL 130-159 mg/dL ? Borderline high LDL 160-189 mg/dL ? High LDL greater than 189 mg/dL ?Very high VLDL TYNMOUIMJXX49tg/dL05/27/2025 2:45 PM [facility] CHOL/HDL RATIO3.2<5.011 2:45 PM [facility] Specimen (Source)Anatomical Location / LateralityCollection Method / Volume Collection TimeReceived TimeOtherTopography unknown / Uxwuvyb8605/27/2025 7:00 AM EST05/27/2025 7:01 AM EST Narrative Authorizing ProviderResult TypeResult StatusMarquez WILLIAMSON BLOOD ORDERABLES Final ResultPerforming OrganizationAddressCity/State/ZIP CodePhone Number [facility] [address] [place] [id number], [facility] [address] [place] [address] * (ABNORMAL) Comprehensive metabolic panel (05/27/2025 7:00 AM EST)Component ValueRef RangeTest MethodAnalysis TimePerformed AtPathologist SignatureGlucose 106(H)70 - 100 mg/dL05/27/2025 2:45 PM [facility] Comment: Random Glucose Reference Range is dependent on time and content of last meal. Glucose of more than 200 mg/dL in a nonstressed, ambulatory subject supports the diagnosis of Diabetes Mellitus. ADA recommended reference range CUP865 - 25 mg/dL05/27/2025 2:45 PM [facility] CtrCREATININE 0.930.60 - 1.20 mg/dL05/27/2025 2:45 PM [facility] ESTIMATED GFR>60. 2:45 PM [facility] LdpPhkeck190 136 - 145 mmol/L107/27/2024 2:45 PM [facility] CtrPotassium, Bld4.43.5 - 5.1 mmol/L107/27/2024 2:45 PM [facility] Giocvnxu34402 - 107 mmol/L107/27/2024 2:45 PM [facility] Carbon Sbzkqrp89.721.0 - 31.0 mmol/L107/27/2024 2:45 PM [facility] CtrAnion Gap9.76.0 - 15.011 2:45 PM [facility] CtrCalcium9.28.6 - 10.3 mg/dL05/27/2025 2:45 PM [facility] CtrTOTAL PROTEIN6.76.4 - 8.9 g/dL05/27/2025 2:45 PM [facility] CtrALBUMIN LEVEL4.23.5 - 5.7 g/dL05/27/2025 2:45 PM [facility] CtrGLOBULIN2.5g/dL05/27/2025 2:45 PM [facility] CtrALBUMIN/GLOBULIN RATIO1.7107/27/2024 2:45 PM [facility] CtrBILIRUBIN,TOTAL0.40.3 - 1.0 mg/dL05/27/2025 2:45 PM [facility] CtrASPARTATE AMINO FUUCCLGKDYE0382 - 39 U/L107/27/2024 2:45 PM [facility] CtrALANINE VNHASZSXFZTPGBSL181 - 52 U/L 05/27/2025 2:45 PM [facility] CtrALKALINE ZPXUCUWLMMW7212 - 104 U/L107/27/2024 2:45 PM [facility] CtrSpecimen (Source) Anatomical Location / LateralityCollection Method / VolumeCollection Time Received TimeOtherTopography unknown / Iyebqmc3505/27/2025 7:00 AM EST05/27/2025 7:01 AM EST Narrative Authorizing ProviderResult TypeResult StatusMarquez WILLIAMSON BLOOD ORDERABLES Final ResultPerforming OrganizationAddressCity/State/ZIP CodePhone Number [facility] [address] [place] [address], [facility] [address] [place] [address] * Bilateral screening mammogram with tomosynthesis (06/12/2024 4:26 PM EST) Anatomical RegionLateralityModalityBreastBilateralMammographySpecimen (Source) Anatomical Location / LateralityCollection Method / VolumeCollection Time Received Time06/15/2024 2:31 PM EST Impressions 06/15/2024 2:37 PM EST Impression: No specific evidence of malignancy seen in either breast. BIRADS 2 - Benign Findings DENSITY: The breasts are heterogeneously dense, which may obscure small masses. FOLLOW-UP: Routine Screening Mammogram ELECTRONICALLY SIGNED BY: Tab Abraham M.D. Narrative 06/15/2024 2:37 PM EST Examination: BI MAMMOGRAM SCREENING TOMOSYNTHESIS BILATERAL Clinical History: screen Technique: Screening digital mammography study of both breasts was performed with 2-D and 3-D tomosynthesis imaging. Study was compared to the prior exam dated 06/06/2023. Findings: There is no evidence of interval dominant spiculated mass, grouped microcalcifications, or skin thickening which would be suggestive of malignancy. ?? A few benign-appearing calcifications are a few small benign densities on the left similar to the prior study. Axillary lymph nodes are noted on the left. Procedure Note Tab Abraham MD - 06/15/2024 Examination: BI MAMMOGRAM SCREENING TOMOSYNTHESIS BILATERAL Clinical History: screen Technique: Screening digital mammography study of both breasts wasperformed with 2-D and 3-D tomosynthesis imaging. Study was compared tothe prior exam dated 06/06/2023. Findings: There is no evidence of interval dominant spiculated mass,grouped microcalcifications, or skin thickening which would be suggestiveof malignancy. A few benign-appearing calcifications are a few small benign densities onthe left similar to the prior study. Axillary lymph nodes are noted on theleft. IMPRESSION: Impression: No specific evidence of malignancy seen in either breast. BIRADS 2 - Benign Findings DENSITY: The breasts are heterogeneously dense, which may obscure smallmasses. FOLLOW-UP: Routine Screening Mammogram ELECTRONICALLY SIGNED BY: Tab Abraham M.D. Authorizing ProviderResult TypeResult StatusJose Luis Avilez MDATOK[facility] [place] BI PROCEDURES Final Result * Colonoscopy (10/27/2023 9:37 AM EDT)Anatomical RegionLateralityModality Endoscopy Narrative Authorizing ProviderResult TypeResult StatusPaanca Vasquezmariannwatson DOENDOSCOPY PROCEDURE ORDERABLESFinal Result * THINPREP TIS PAP AND HPV MRNA E6/E7 REFLEX HPV 16,18/45 ([id number]) (09/05/2022) ComponentValueRef RangeTest MethodAnalysis TimePerformed AtPathologist SignatureCLINICAL INFORMATION:None givenNOMS LEGACY EXTERNAL LABLMP:NONE GIVEN [facility] LEGACY EXTERNAL LABPREV. PAP:NONE GIVENNOMS LEGACY EXTERNAL LABPREV. BX: NONE GIVENNOMS LEGACY EXTERNAL LABSOURCE:None given[facility] STATEMENT OF ADEQUACY:SEE COMMENTNOOR LEGACY EXTERNAL LABComment: Satisfactory for evaluation. Endocervical/transformation zone component present. Partially obscuring blood INTERPRETATION/RESULT:Negative for intraepithelial lesion or malignancy.[facility] LEGACY EXTERNAL LABCOMMENT:SEE COMMENTNOMS LEGACY EXTERNAL LABComment: This case could not be evaluated with computer assisted technology. The slide was manually screened according to routine procedures. PINION STAKER:SEE COMMENTNOMS LEGACY EXTERNAL LABComment: LXT, CT(ASCP) CT screening location: [place] [address]. REVIEW PINION STAKER:SEE COMMENTNOOR LEGACY EXTERNAL LABComment: RLP, CT(ASCP) CT screening location: [place] [address]. COMMENTSEE COMMENTNOMS LEGACY EXTERNAL LABComment: EXPLANATORY NOTE: The Pap is a screening test for cervical cancer. It is not a diagnostic test and is subject to false negative and false positive results. It is most reliable when a satisfactory sample, regularly obtained, is submitted with relevant clinical findings and history, and when the Pap result is evaluated along with historic and current clinical information. HPV MRNA E6/E7Not DetectedNot DetectedNOMS LEGACY EXTERNAL LABComment: Methodology: Stationary Engineer-Mediated Amplification This assay detects E6/E7 viral messenger RNA (mRNA) from 14 high-risk HPV types (16,18,31,33,35,39,45,51,52,56,58,59,66,68). Cervical sources are required for HPV testing. If a vaginal source from a patient who has had a total hysterectomy with removal of cervix was submitted, please contact the testing laboratory for alternative testing options. For additional information, please refer to http://education.RACTIV/faq/KDY885h1 (This link if provided for information/ educational purposes only.) Specimen (Source)Anatomical Location / LateralityCollection Method / Volume Collection TimeReceived Time09/05/2022 Narrative Authorizing ProviderResult TypeResult StatusJose Luis MERCHANT LABSFinal ResultPerforming OrganizationAddressCity/State/ZIP CodePhone Number [facility] from Last 3 Months or Most Recently Relevant to Health Maintenance Insurance Care Teams Team MemberRelationshipSpecialtyStart DateEnd Date Stephane Morales DO [address] [place] [address] PCP - GeneralFamily Medicine08/07/23
--- OUTSIDE RECORDS SUMMARY | 2025-06-10 08:08 | XMS_ITS | Encounter Summary ---
Author Organization [facility] Address [address] [place] [address] Care Team Providers Care Construction Supervisor/Carpenter Name Role Phone Willie Moralesew David DO Primary Care Provider [phone] Encounter Details DateTypeDepartmentCare Team (Latest Contact Info)Anoslyxolkb37/18/2025External Result Encounter [facility] External Department Unsolicited Marquez Haney, PA [address] [facility] [facility] [address] [facility] [address] [place] [address] Social History Tobacco UseTypesPacks/DayYears UsedDateSmoking [...] week05/30/2023How often do you attend scientologist or druze services?1 to 4 times per year05/30/2023 Do you belong to any clubs or organizations such as scientologist groups, unions, fraTrippifi or athletic groups, or school groups?Yes05/30/2023How often do you attend meetings of the clubs or organizations you belong to?More than 4 times per year05/30/2023re you , , , , never , or living with a partner?Hafsznv3805/30/2023UDIT-CAnswerDate RecordedFrequency of Alcohol ConsumptionNot on file05/30/2023Q2: How many drinks containing alcohol do you have on a typical day when you are drinking?Patient jlaoxfal29/21/2023Q3: How often do you have six or more drinks on one occasion?Patient declined 05/30/2023Overall Financial Resource Strain (CARDIA)AnswerDate RecordedHow hard is it for you to pay for the very basics like food, housing, medical care, and heating?Patient /21/2023HQ-2AnswerDate RecordedPatient Health Questionnaire-2 Ilpcg66907/26/2024[facility] [place] [facility] - Occupational Stress QuestionnaireAnswerDate RecordedDo you feel stress - tense, restless, nervous, or anxious, or unable to sleep at night because yourmind is troubled all the time - these days?Only a vqktbe1705/30/2023Exercise Vital Sign AnswerDate RecordedOn average, how many days per week do you engage in moderate to strenuous exercise (like a brisk walk)?2 days05/30/2023On average, how many minutes do you engage in exercise at this level?20 min05/30/2023Hunger Vital SignAnswerDate RecordedWithin the past 12 months, you worried that your food would run out before you got the money to buymore.Patient jhhqumpz06/21/2023 Within the past 12 months, the food you bought just didn't last and you didn't have money to get more.Patient twejbeae23/21/2023RAPARE - TransportationAnswer Date RecordedIn the past 12 months, has lack of transportation kept you from medical appointments or from getting medications?Patient /21/2023In the past 12 months, has lack of transportation kept you from meetings, work, or from getting things needed for daily living?Patient apauocil00/21/2023Housing Stability Vital SignAnswerDate RecordedIn the last 12 months, was there a time when you were not able to pay the mortgage or rent on time?Patient refused 05/30/2023Number of Places Lived in the Last YearNot on file05/30/2023In the last 12 months, was there a time when you did not have a steady place to sleep or slept in ashelter (including now)?Patient bliymol2005/30/2023CommentsNo Sex and Gender InformationValueDate RecordedSex Assigned at BirthNot on file Legal BntLaaycw69/15/2023 7:20 PM EDTGender IdentityNot on fileSexual OrientationNot on filedocumented as of this encounter Plan of Treatment DateTypeDepartmentCare Team (Latest Contact Info)Dusyfihqktq28/10/2025 8:30 AM ESTAncillary Procedure [facility] [place] [facility] [address] [place] [phone] 06/18/2025 5:30 PM ESTAncillary Procedure [facility] [place] [facility] [address] [place] [phone] 06/08/2026 10:00 AM ESTOffice Visit [facility] [place] [facility] [address] [place] [phone] Jose Luis Avilez MD [address] [place] [address] documented as of this encounter Procedures Procedure NamePriorityDate/TimeAssociated DiagnosisCommentsHEMOGLOBIN A1C WITH ZLTIrhuunl67/18/2025 7:00 AM EST documented in this encounter Results * (ABNORMAL) Hemoglobin a1c with eag (05/27/2025 7:00 AM EST)ComponentValueRef RangeTest MethodAnalysis TimePerformed AtPathologist SignatureHEMOGLOBIN A1C 5.9(H)4.3 - 5.6 %05/28/2025 8:12 AM [facility]: Increased risk for diabetes: 5.7 - 6.4 diabetes: >6.4 glycemic control for adults with diabetes: <7.0 ESTIMATED AVERAGE ANJMYNC439wo/dL05/28/2025 8:12 AM [facility]trSpecimen (Source)Anatomical Location / LateralityCollection Method / VolumeCollection TimeReceived TimeBlood (Blood)05/27/2025 7:00 AM EST05/27/2025 7:01 AM EST Narrative Authorizing ProviderResult TypeResult StatusMarquez WILLIAMSON BLOOD ORDERABLES Final ResultPerforming OrganizationAddressCity/State/ZIP CodePhone Number [facility] [address] [place] [address], [facility] [address] [place] [address] documented in this encounter Visit Diagnoses Not on filedocumented in this encounter Care Teams Team MemberRelationshipSpecialtyStart DateEnd Date Stephane Morales DO [address] [facility] [address] [place] [address] PCP - GeneralFamily Medicine08/07/23documented as of this encounter
--- OUTSIDE RECORDS SUMMARY | 2025-06-10 08:09 | XMS_ITS | Clinical Summary ---
Author Organization [facility] Address [address] [place] [address] Phone Care Team Providers Care Network Manager Name Role Phone Generic Provider, No Assigned Pcp MD Primary Car e Provider Unavailable Social History Tobacco UseTypesPacks/DayYears UsedDateSmoking Tobacco: Never Assessed CommentsUnknownSex and Gender InformationValueDate RecordedSex Assigned at Not on fileLegal VpeCjjtmp16/26/2022 12:32 AM ESTGender IdentityNot on file Sexual OrientationNot on file Plan of Treatment Health MaintenanceDue DateLast DoneCommentsCT Lmcidetyqgxy1969FIT-DNA (Cologuard)1969FIT1969HIV Hbzslquxs1969Lipid Panel1969 Cvarfzzzsylry1969MMR Vaccines (1 of 1 - Standard series)1970Diabetes Qxbatkznx00/23/1987Hepatitis C Mysdgpyqi94/23/1987Hepatitis B Vaccines (1 of 3 - 19+ 3-dose series)1988Cervical Cancer Zmfmovfuy35/23/1990HPV/Cotest 1990Pap Smear1990DTaP/Tdap/Td Vaccines (1 - Tdap)1991 Pneumococcal Vaccine (1 of 1 - PCV)2019Zoster Vaccines (1 of 2)2019 Influenza Vaccine (#1)COVID-19 Vaccine ( - season) 5Yearly Adult Jeydvvzx24, 05/31/2023Mammogram 512/10/2023, 06/12/2024, 06/06/2023, Additional history exists Gpnroacdgpp79/19/203404/, 10/23/2023olorectal Cancer Zyousgnda23/19/2034 HIB VaccinesAged OutNo longer eligible based on patient's age to complete this topicHPV VaccinesAged OutNo longer eligible based on patient's age to complete this topicHepatitis A VaccinesAged OutNo longer eligible based on patient's age to complete this topicIPV VaccinesAged OutNo longer eligible based on patient's age to complete this topicMeningococcal VaccineAged OutNo longer eligible based on patient's age to complete this topicRotavirus VaccinesAged OutNo longer eligible based on patient's age to complete this topic Insurance Care Teams Team MemberRelationshipSpecialtyStart DateEnd Date Generic Provider, No Assigned PcpMD NONE [facility] [place] [address] PCP - GeneralGeneral Practice02/07/25
--- OUTSIDE RECORDS SUMMARY | 2025-06-10 08:09 | XMS_ITS | Encounter Summary ---
Author Organization [facility] Address [address] [place] [address] Care Team Providers Care Highway Painter Helper Name Role Phone Stephane Morales DO Primary Care Provider +1- [phone] Encounter Details DateTypeDepartmentCare Team (Latest Contact Info)Opowstahusc39/19/2025Telephone [facility] [address] [facility] [place] [phone] Madison Parson MA Social History Tobacco UseTypesPacks/DayYears UsedDateSmoking Tobacco: NeverSmokeless [...] times a week05/30/2023How often do you attend samaritan or jainism services?1 to 4 times per year05/30/2023 Do you belong to any clubs or organizations such as samaritan groups, unions, fraternal or athletic groups, or school groups?Yes05/30/2023How often do you attend meetings of the clubs or organizations you belong to?More than 4 times per year05/30/2023re you , , , , never , or living with a partner?Zdjcmgq4105/30/2023UDIT-CAnswerDate RecordedFrequency of Alcohol ConsumptionNot on file05/30/2023Q2: How many drinks containing alcohol do you have on a typical day when you are drinking?Patient jzaebzhr47/21/2023Q3: How often do you have six or more drinks on one occasion?Patient declined 05/30/2023Overall Financial Resource Strain (CARDIA)AnswerDate RecordedHow hard is it for you to pay for the very basics like food, housing, medical care, and heating?Patient mqihpbcs64/21/2023HQ-2AnswerDate RecordedPatient Health Questionnaire-2 Dijuh93407/26/2024[facility] [place] of Occupational Health - Occupational Stress QuestionnaireAnswerDate RecordedDo you feel stress - tense, restless, nervous, or anxious, or unable to sleep at night because yourmind is troubled all the time - these days?Only a kujnkx5905/30/2023Exercise Vital Sign AnswerDate RecordedOn average, how many days per week do you engage in moderate to strenuous exercise (like a brisk walk)?2 days05/30/2023On average, how many minutes do you engage in exercise at this level?20 min05/30/2023Hunger Vital SignAnswerDate RecordedWithin the past 12 months, you worried that your food would run out before you got the money to buymore.Patient pkuwufip86/21/2023 Within the past 12 months, the food you bought just didn't last and you didn't have money to get more.Patient ramkvofi27/21/2023RAPARE - TransportationAnswer Date RecordedIn the past 12 months, has lack of transportation kept you from medical appointments or from getting medications?Patient txhdipre26/21/2023In the past 12 months, has lack of transportation kept you from meetings, work, or from getting things needed for daily living?Patient dvruxxek12/21/2023Housing Stability Vital SignAnswerDate RecordedIn the last 12 months, was there a time when you were not able to pay the mortgage or rent on time?Patient refused 05/30/2023Number of Places Lived in the Last YearNot on file05/30/2023In the last 12 months, was there a time when you did not have a steady place to sleep or slept in ashelter (including now)?Patient rfevppv3405/30/2023CommentsNo Sex and Gender InformationValueDate RecordedSex Assigned at BirthNot on file Legal UedFsnlxy39/15/2023 7:20 PM EDTGender IdentityNot on fileSexual OrientationNot on filedocumented as of this encounter Miscellaneous Notes * Telephone Encounter - Madison Parson MA - 05/28/2025 4:04 PM EST Pt notified of her results and appt with Dr. Mills was scheduled * Telephone Encounter - Madison Parson MA - 05/28/2025 4:00 PM EST [facility]ips[facility] Labs returned stable. No significant abnormalities. D-dimer, which assesses for blood clots, returned normal. A1c is 5.9%. Please notify pt. Thank you. documented in this encounter Plan of Treatment DateTypeDepartmentCare Team (Latest Contact Info)Iqvvystacdb11/10/2025 8:30 AM ESTAncillary Procedure [facility] [address] [place] [address] 06/18/2025 5:30 PM ESTAncillary Procedure [facility] [address] [place] [address] 06/08/2026 10:00 AM ESTOffice Visit [facility] [address] [place] [phone] Jose Luis Avilez MD [address] [place] [address] documented as of this encounter Visit Diagnoses Not on filedocumented in this encounter Care Teams Team MemberRelationshipSpecialtyStart DateEnd Date Stephane Morales DO [address] [facility] [address] [place] [address] PCP - GeneralFamily Medicine08/07/23documented as of this encounter
--- NOTE | 2025-06-10 09:52 | PC.NURSE ---
Nursing Note Cardiac Stress Test Reviewed: Medication, allergies and patient history reviewed. Stress Test: [x ] Patient tolerated stress test well. [ ] Patient unable to tolerate walking on treadmill. Switched to Lexiscan stress test. [ ] No chest pain noted per patient [x ] Chest pain that resolved prior to leaving stress lab. [ ] No dyspnea noted. [x ] Dyspnea that resolved prior to leaving stress lab. [x ] Patient left stress lab asymptomatic and hemodynamically stable. [ ] Patient taken to the Emergency Room due to non-resolving symptoms following stress test. [x ] Patient achieved target heart rate. [ ] Patient unable to achieve target heart rate. [ ] Aminophylline administered as reversal agent to Lexiscan (Regadenoson). [ ] Nitro administered. Nursing Comments:Pt had Cardiolite test done. tolerated well. chest pain was no worse then her normal pain that is why we did the test.
--- NOTE | 2025-06-10 14:55 | PM.STRESS ---
Stress Test Stress Test Requesting physician: SHERLYN TODD Procedure: Nuclear treadmill stress test General Information: Reason for Stress Test: Chest pain Cardiac History and Risk Factors: Resting 12 - Lead Electrocardiogram: Sinus rhythm with normal intervals Stress Test: Stress Test: Protocol: Keaton protocol Exercise Capacity: Patient exercised for 9 minutes and 7 seconds achieving a work level of 10 METS reaching stage 4. Blood Pressure Response: Patient had a baseline blood pressure of 124/78 that increased to 180/84 at peak exercise which is an expected normal response. Rhythm: Sinus rhythm with a base heart rate of 70 bpm that increased to 169 bpm achieving 103% age-predicted. ST - Response: Minimal ST depression in inferior leads that does not meet criteria for ischemia Patient Response: Chest Pain similar to baseline l Interpretation: 1. No evidence of ischemia noted on EKG 2. Normal heart rate recovery and normal chronotropic response 3. Diaz treadmill score of greater than 5 indicates low risk for adverse cardiac events 4. Nuclear portion of the study to be dictated separate
== END 2025-06-10 08:06 | disposition home or self-care (01) ==
LOC: NM 08:06
PROVIDERS: PCP Family Medicine; Visit Provider Family Medicine
DX: R07.9 Chest pain, unspecified (principal)
CPT/HCPCS: 78452; 93017; A9500